=== PATIENT | female | born 1955 | race Caucasian/White ===

== ENCOUNTER 2020-12-01 07:27 | Outpatient (REF) | payer MEDICARE, OTHER, SELFPAY ==
--- NOTE | ~2020-12-01 | MM_ITS ---
EXAMINATION: MM SCREENING DIGITAL BREAST TOMOSYNTHESIS, CLINICAL INFORMATION: Screening. Asymptomatic. The lifetime risk of breast cancer based on the Tyrer-Cuzick Model is 4%. COMPARISON: Mammography: 06/29/2019 and prior exams dating back to 2009. TECHNIQUE: Digital breast tomosynthesis is performed in both the craniocaudal and mediolateral oblique views along with computer-aided detection (CAD). Synthesized 2D images are generated from the tomosynthesis. Additional exaggerated right CC view is provided. FINDINGS: The breasts are heterogeneously dense, which may obscure small masses (ACR BI-RADS breast composition Category c). Breast tissue composition borders on average fibroglandular. The left breast is unremarkable. There is no interval mass or architectural abnormality or developing density. No abnormal calcifications. The axilla and skin contours are unremarkable. The right MLO view has asymmetric density posterior lower quadrant 8 cm from nipple likely incompletely compressed glandular tissue and/or summation artifact. The exaggerated CC view shows some grouped calcifications posterior outer breast without visible correlate on MLO view. Patient will be recalled for additional imaging right breast. MM/MM tomosynthesis screening BI IMPRESSION: Right (2 findings): -Small group of calcifications on exaggerated CC. -Asymmetric density posterior lower quadrant on MLO possibly summation artifact. Left: -No mammographic evidence of malignancy. ASSESSMENT: BI-RADS 0: Incomplete - Need Additional Imaging Evaluation RECOMMENDATION: 1. Additional views of the right breast (magnification exaggerated CC, magnification MLO; 3-D ML lower). 2. Targeted ultrasound if warranted after review of the additional views. 3. Radiology department staff will contact the patient for additional imaging. This patient's information was entered into a reminder system with a target due date for their next mammogram.
== END 2020-12-01 07:28 | disposition home or self-care (01) ==
LOC: HO.MAMMO 07:27
PROVIDERS: PCP Internal Medicine; Visit Provider Internal Medicine
DX: Z12.31 Encounter for screening mammogram for malignant neoplasm of breast (principal)
CPT/HCPCS: 77063; 77067

== ENCOUNTER 2020-12-08 08:02 | Outpatient (REF) | payer MEDICARE, OTHER, SELFPAY ==
--- NOTE | ~2020-12-08 | MM_ITS ---
EXAMINATION: MM DIAGNOSTIC DIGITAL BREAST TOMOSYNTHESIS, RIGHT CLINICAL INFORMATION: Recall from screening for 2 separate findings right breast: Asymmetric density posterior lower quadrant on MLO view possibly summation artifact and some calcifications posterior outer breast on exaggerated CC view. COMPARISON: Mammography: 12/01/2020 and prior exams dating back to 04/12/2014 TECHNIQUE: Digital breast tomosynthesis is performed. 2D images are generated from the tomosynthesis. The following views are obtained: 3-D ML, magnification exaggerated CC, magnification MLO x2. FINDINGS: The breasts are heterogeneously dense, which may obscure small masses (ACR BI-RADS breast composition Category c). The additional views demonstrate no persistent asymmetric density. There is no mass or architectural abnormality in the posterior lower breast. The calcifications posterior upper outer breast are scattered and in retrospect similar to prior exams dating back to 2017 and 2013. MM/MM tomosynthesis added views R IMPRESSION: 1. Additional views show no persistent asymmetric density lower right breast. 2. Scattered calcifications posterior upper outer right breast similar to prior exams. ASSESSMENT: BI-RADS 2: Benign RECOMMENDATION: Routine annual mammography screening. This patient's information was entered into a reminder system with a target due date for their next mammogram.
== END 2020-12-08 08:03 | disposition home or self-care (01) ==
LOC: HO.MAMMO 08:02
PROVIDERS: PCP Internal Medicine; Visit Provider Internal Medicine
DX: N64.89 Other specified disorders of breast (principal); R92.1 Mammographic calcification found on diagnostic imaging of breast
CPT/HCPCS: 77061; 77065

== ENCOUNTER 2021-09-21 08:47 | Outpatient (REF) | payer MEDICARE, OTHER, SELFPAY ==
[2021-09-21 09:01] LABS: MANUAL DIFF FLAG NO
[2021-09-21 09:43] LABS: Basophils Percent Auto 0.6 % (0-2); Eosinophils Absolute Auto 0.1 X10*3/uL (0.0-0.4); Eosinophils Percent Auto 1.6 % (0-4); Hematocrit 41.5 % (37.0-47.0); Hemoglobin 13.6 g/dl (12.0-16.0); Imm Gran Abs Auto 0.01 X10*3/uL (0.00-0.03); Imm Gran Pct Auto 0.2 % (0.0-0.4); Lymphocytes Absolute Auto 1.6 X10*3/uL (1.2-4.9); Lymphocytes Percent Auto 33.5 % (20-40); Mean Corpuscular HGB Conc 32.8 g/dl (31.0-35.0); Mean Corpuscular Hemoglobin 31.1 pg (27.0-33.0); Mean Platelet Volume 9.6 fL (9.4-12.3); Monocytes Absolute Auto 0.4 X10*3/uL (0.1-1.2); Monocytes Percent Auto 9.1 % (2-11); Neutrophils Absolute Auto 2.7 x10*3/uL (2.0-8.3); Platelet Count 226 X10*3/uL (160-400); Red Blood Count 4.37 X10*6/uL (4.20-5.50); Red Cell Distribution Width 12.6 % (11.0-16.0); White Blood Count 4.9 X10*3/uL (4.8-10.8)
[2021-09-21 09:44] LABS: Appearance Urine CLEAR; Color Urine YELLOW; Glucose Urine UA NEG (NEG); Leukocyte Esterase Urine NEG (NEG); Nitrite Urine NEG (NEG); Specific Gravity - Urine 1.025 (1.005-1.025); Urine Blood NEG (NEG); Urine Ketones NEG (NEG); Urine Protein NEG (NEG-TRACE)
[2021-09-21 09:50] LABS: RBC Urine 0-2 /HPF (0); Squamous Epithelial Cell Urine 1+ /LPF; WBC Urine 0-2 /HPF (0-4)
[2021-09-21 09:51] LABS: Bacteria Urine TRACE /LPF; Mucus Urine 2+ /LPF
[2021-09-21 10:07] LABS: Alanine Aminotransferase 13 U/L (0-31); Albumin Level 4.5 g/dL (3.5-5.0); Alkaline Phosphatase 69 U/L (39-117); Anion Gap 10 (12-20); Aspartate Amino Transferase 17 U/L (5-31); Bilirubin Total 0.7 mg/dL (0.0-1.0); Blood Urea Nitrogen 17 mg/dL (9-16); Carbon Dioxide 27 mmol/L (22-29); Chloride 107 mmol/L (96-108); Cholesterol 182 mg/dL; Estimated Glomerular Filt Rate > 60; Glucose Fasting 95 mg/dL (60-99); HDL Cholesterol 58 mg/dL; LDL Cholesterol Calculated 107 mg/dl; Potassium 4.3 mmol/L (3.3-5.1); Sodium 140 mmol/L (135-145); Triglycerides 89 mg/dL
== END 2021-09-21 08:48 | disposition home or self-care (01) ==
LOC: HO.LAB 08:47
PROVIDERS: PCP Internal Medicine; Visit Provider Internal Medicine
DX: I10 Essential (primary) hypertension (principal); M54.9 Dorsalgia, unspecified; J44.9 Chronic obstructive pulmonary disease, unspecified; Z87.891 Personal history of nicotine dependence
CPT/HCPCS: 36415; 80053; 80061; 81001; 85025

== ENCOUNTER 2021-12-28 07:55 | Outpatient (REF) | payer MEDICARE, OTHER, SELFPAY ==
--- NOTE | ~2021-12-28 | MM_ITS ---
EXAMINATION: MM SCREENING DIGITAL BREAST TOMOSYNTHESIS, BILATERAL CLINICAL INFORMATION: Screening. Asymptomatic. The lifetime risk of breast cancer based on the Tyrer-Cuzick Model is 4%. COMPARISON: Mammography: 12/08/2020, 12/01/2020, 06/29/2019 TECHNIQUE: Digital breast tomosynthesis is performed in both the craniocaudal and mediolateral oblique views along with computer-aided detection (CAD). Synthesized 2D images are generated from the tomosynthesis. FINDINGS: The breasts are heterogeneously dense, which may obscure small masses (ACR BI-RADS breast composition Category c). There are no significant masses, abnormal calcifications, or other abnormalities. Breast tissue composition borders on average fibroglandular. Parenchymal pattern is similar to prior studies. No developing density. No significant changes. MM/MM tomosynthesis screening BI IMPRESSION: No mammographic evidence of malignancy. ASSESSMENT: BI-RADS 1: Negative RECOMMENDATION: Routine annual mammography screening. This patient's information was entered into a reminder system with a target due date for their next mammogram.
== END 2021-12-28 07:56 | disposition home or self-care (01) ==
LOC: HO.MAMMO 07:55
PROVIDERS: PCP Internal Medicine; Visit Provider Internal Medicine
DX: Z12.31 Encounter for screening mammogram for malignant neoplasm of breast (principal)
CPT/HCPCS: 77063; 77067

== ENCOUNTER 2022-04-16 08:56 | Outpatient (REF) | payer MEDICARE, OTHER, SELFPAY ==
[2022-04-16 09:26] LABS: Hematocrit 40.6 % (37.0-47.0); Hemoglobin 13.7 g/dl (12.0-16.0); Mean Corpuscular HGB Conc 33.7 g/dl (31.0-35.0); Mean Corpuscular Hemoglobin 31.6 pg (27.0-33.0); Mean Corpuscular Volume 93.5 fL (80.0-98.0); Mean Platelet Volume 9.3 fL (9.4-12.3); Platelet Count 249 X10*3/uL (160-400); Red Blood Count 4.34 X10*6/uL (4.20-5.50); Red Cell Distribution Width 12.1 % (11.0-16.0); White Blood Count 6.6 X10*3/uL (4.8-10.8)
[2022-04-16 09:58] LABS: Alanine Aminotransferase 14 U/L (0-31); Albumin Level 4.8 g/dL (3.5-5.0); Alkaline Phosphatase 97 U/L (39-117); Anion Gap 13 (12-20); Aspartate Amino Transferase 17 U/L (5-31); Bilirubin Total 0.5 mg/dL (0.0-1.0); Blood Urea Nitrogen 17 mg/dL (9-16); Calcium 9.7 mg/dL (8.4-10.2); Carbon Dioxide 28 mmol/L (22-29); Chloride 103 mmol/L (96-108); Estimated Glomerular Filt Rate > 60; Glucose Random 95 mg/dL (60-115); Sodium 139 mmol/L (135-145); Total Protein 7.3 g/dL (6.5-8.0)
== END 2022-04-16 08:57 | disposition home or self-care (01) ==
LOC: HO.LAB 08:56
PROVIDERS: PCP Internal Medicine; Visit Provider Internal Medicine
DX: R63.0 Anorexia (principal); K59.00 Constipation, unspecified; R19.7 Diarrhea, unspecified; R12 Heartburn
CPT/HCPCS: 36415; 80053; 85027; 99202

== ENCOUNTER 2023-03-12 13:41 | Outpatient (AMB) | payer MEDICARE, OTHER, SELFPAY ==
--- NOTE | 2023-03-12 13:51 | MHC.OFFVIS ---
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 Patient reports having locking of the middle finger in both hands for 7 years. Hx of trigger finger injection unsure of which hand. She states that her right hand is worse than the left. Hx of CTS on the right hand twice. Having ongoing numbness on the right thumb, pointer, middle and half of the ring finger. Allergies bees Allergy (Severe, Uncoded 04/16/22 08:04) Hives HPI PICKING MACHINE OPERATOR-B/L hand trigger fingers HPI Details Michaela is a 67 year old right hand dominant woman who presents with complaints of bilateral painful locking & catching of the middle fingers, R>L. She reports painful locking of her middle fingers for ~7 years now, with a Hx of steroid injections in the past but she is unsure to which finger She reports a Hx of 2X right carpal tunnel releases at an outside location. She complains of persistent numbness in the median nerve distribution She says she cares for her infant grandson every other Friday [facility] Medical History (Updated 03/12/23 @ 14:15 by Boubacar Martinez) History of high blood pressure Surgical History (Updated 03/12/23 @ 14:14 by Boubacar Martinez) Hx of carpal tunnel repair Hx of cervical spinal arthrodesis Hx of tubal ligation Family History Mother HTN (hypertension) Heart attack Father Prostate cancer Social History (Updated 03/12/23 @ 13:59 by Neftaly Camacho) Household Members: Spouse Alcohol intake: current Tobacco use type: Cigarette Substance Use Type: Marijuana Current occupational status: retired Current occupation: right hand dominant Review of Systems Const All systems reviewed & are unremarkable except as noted in HPI and below Physical Exam Vital Signs: BMI result Body Mass Index 23.5 Const General: cooperative, healthy appearing and no acute distress Orientation/consciousness: patient oriented x3 HEENT Head: Yes normocephalic and Yes atraumatic Eyes EOM: EOMs intact bilaterally Resp Effort & Inspection: normal respiratory effort and able to speak in complete sentences Cardio Jugular venous distension: no JVD Skin General skin exam: turgor normal Rashes: no rashes Neuro General: patient oriented x3 Extrem Other: Evaluation of right Upper Extremity: The patient is alert, oriented, and in no acute distress Neuro: Dense numbness in the median nerve distribution of the right hand. Significant thenar wasting and no APB muscle belly firing. Normal sensation to the small finger of the left hand Vascular: Cap refill brisk ROM: She can make a fist and extend all her digits Visible and palpable locking and catching of the bilateral middle fingers & right ring finger Tender over the a1 dwaine of the right middle finger and right ring finger Questionable sticking of the right thumb Skin: No lacerations or abrasions. General: No Ecchymosis. No Erythema or evidence of infection. Psych Appearance: grossly normal Affect: normal affect Attitude: cooperative Assessment & Plan Assessment & Plan (1) Trigger middle finger of right hand: Code(s): M65.331 - Trigger finger, right middle finger (2) Trigger middle finger of left hand: Code(s): M65.332 - Trigger finger, left middle finger (3) History of carpal tunnel surgery of right wrist: Code(s): Z98.890 - Other specified postprocedural states (4) Trigger ring finger of right hand: Code(s): M65.341 - Trigger finger, right ring finger Plan Assessment & Plan: 1. Right middle finger trigger finger 2. Right ring finger trigger finger 3. Left middle finger trigger finger I educated her about this condition I discussed operative and non-operative treatment options The patient would like to proceed with surgery, beginning with the right hand The risks and benefits of operative treatment were discussed with the patient and the patient wishes to proceed with surgery. These risks include, but are not limited to risk of damage to blood vessels, nerves, tendons, infection, recurrence, incomplete relief of preoperative symptoms, persistent pain, possible need for further surgery and the risks associated with regional blocks and anesthesia. The plan is to take the patient to the operating room sometime in the next few weeks for the following procedures: 1. Right middle trigger finger release, under local 1. Right ring trigger finger release, under local All of the preoperative paperwork including the consent was filled out today. All the patient's questions were answered. The patient understands that they will be contacted by our copy clerk soon to schedule this procedure She denies Diabetes, blood thinners, asthma, heart, lung, kidney issues We can discuss treatment for her left hand at a later date 4. Right carpal tunnel syndrome, S/P 2x release DOS: ~2009 With dense numbness in the median nerve distribution and thenar wasting Scribed for Laura Arroyo MD by Boubacar Martinez, medical practice administrator, on 03/12/23 at 2:15 PM, EST. Coding Level of Care Code New Pt Level 4 (38013) Diagnoses Trigger middle finger of right hand M65.331 Trigger middle finger of left hand M65.332 History of carpal tunnel surgery of right wrist Z98.890 Trigger ring finger of right hand M65.341
[2023-03-12 13:59] VITALS: BMI 23.5
== END 2023-03-12 14:35 | disposition home or self-care (01) ==
PROVIDERS: PCP Internal Medicine; Visit Provider Orthopaedic Surgery
DX: M65.331 Trigger finger, right middle finger (principal); M65.332 Trigger finger, left middle finger; M65.341 Trigger finger, right ring finger; Z98.890 Other specified postprocedural states
CPT/HCPCS: 99204

== ENCOUNTER → 2023-03-12 13:41 | Outpatient (BNVA) | payer MEDICARE, OTHER, SELFPAY | PROVIDERS: PCP Internal Medicine; Visit Provider Orthopaedic Surgery | DX: M65.332 Trigger finger, left middle finger (principal); M65.341 Trigger finger, right ring finger; Z98.890 Other specified postprocedural states | CPT/HCPCS: 99202 ==

== ENCOUNTER 2023-04-16 09:03 | Outpatient (REF) | payer MEDICARE, OTHER, SELFPAY | END 2023-04-16 09:04 | disposition home or self-care (01) | LOC: HO.MAMMO 09:03 | PROVIDERS: PCP Internal Medicine; Visit Provider Internal Medicine | DX: Z12.31 Encounter for screening mammogram for malignant neoplasm of breast (principal) | CPT/HCPCS: 77063; 77067 ==

== ENCOUNTER → 2023-04-16 09:15 | Outpatient (BNV) | payer MEDICARE, OTHER, SELFPAY | PROVIDERS: PCP Internal Medicine; Visit Provider Radiology Diagnostic Radiology | DX: Z12.31 Encounter for screening mammogram for malignant neoplasm of breast (principal) | CPT/HCPCS: 77063; 77067 ==

== ENCOUNTER 2023-06-16 13:09 | Outpatient (AMB) | payer MEDICARE, OTHER, SELFPAY ==
--- NOTE | 2023-06-16 13:31 | A.OFFVIS_ITS ---
Intake Vital Signs 06/16/23 13:32 Height 5 ft 5 in Weight 136 lb 10.986 oz BMI 22.7 BP 134/74 Blood Pressure Location Lt brachial Position Sitting Pulse 66 Intake Visit Reasons: EGD discussion Intake Note: Michaela presents in the office today as a follow up. CC: She has not been here in a year. She states that she started taking Benefiber Prebiotic and a Probiotic and she is unsure that it is working for her or not. Allergies bees Allergy (Severe, Uncoded 06/16/23 13:33) Hives HPI HPI Comments History of Present Illness Details CC: abdominal pain and changes in BM 04/16/22: This is a 66 year old female who is here to establish care. Previously Dr Rice patient and shifting care as was not able to get an appt with his office. Has had symptoms for 7 years. Describes these symptoms as heartburn, and periumbilcal abdominal pain which is associated with constipation frequent burping which frustrates her. More recently has had loss of appetite, without loss of weight. When tries to eat becomes nauseous. In terms of bowel habits, alternating between constipation and diarrhea. Abdominal pain which is present almost everyday gets worse or is triggered by the BMs. Describes constipation as infrequent BMs (3-4/week). The BMs are not hard and doesnt have to strain. No blood in stools. Takes NSAIDs frequently, was using ibuprofen after dental work last week. GB still in. Smoker - 1 cig/day (finishes a pack in a month). Diet: loves onions, garlic which inevitably cause bloating and heartburn but finds it hard to avoid it completely. Also takes salads with cruciferous vegetables 4 times a week. Last colonoscopy around [address] Rice. Records pending. Was told to get it repeated in 10 years. Has never had an EGD. 06/16/23: Was lost to follow up. Had a visit over a year ago and that time main concern was abd pain postprandially with urge to defecate. Was booked for a follow up visit to review sx after med and dietary changes which she canceled as she was feeling well. Today, main CC is burning abd pain which seems to go across her abdomen from left to right. Occurs after some certain foods (which she does try to avoid) but once triggered lasts for many hours. Does not think tums helps it. Unable to recall if trial of PPI last year was helpful. With this no changes in appetite, N,V, regurgitation, changes in bowel habits. Has been INTENTIONALLY trying to lose weight but no unintentional weight loss. [facility] Medical History History of high blood pressure Surgical History (Updated 06/16/23 @ 13:33 by EL Rossi) Hx of colonoscopy Hx of carpal tunnel repair Hx of cervical spinal arthrodesis Hx of tubal ligation Family History Mother HTN (hypertension) Heart attack Father Prostate cancer Social History Household Members: Spouse Alcohol intake: current Tobacco use type: Cigarette Substance Use Type: Marijuana Current occupational status: retired Current occupation: right hand dominant Review of Systems Const All systems reviewed & are unremarkable except as noted in HPI and below Physical Exam Vital Signs: Last Vital Signs Pulse 66 06/16/23 13:32 BP 134/74 06/16/23 13:32 BMI result Body Mass Index 22.7 Gen appear: NAD HEENT: nonicteric, no cervical lymphadenopathy Chest: CTA CVS: Regular S1/S2 Abd: soft, nontender, nondistended, bowel sounds + Ext: no peripheral edema Neuro: A/Ox3, noted to move all extremities spontaneously Psych: interacting appropriately Assessment & Plan Assessment & Plan (1) Irritable bowel disease: Code(s): K58.9 - Irritable bowel syndrome without diarrhea (2) Gastro-esophageal reflux: Code(s): K21.9 - Gastro-esophageal reflux disease without esophagitis Plan: Ddx for burning postprandial abd pain include PUD, esophagitis, gastritis, symptomatic cholelithiasis. Pt already aware to avoid trigger foods, smoking and NSAIDs. Plan: - EGD to be set up on non-urgent basis - Take pantoprazole 20 mg once daily in AM and HOLD x2 weeks before EGD - If no evidence of esophagitis endoscopically or histologically, will get an US Abd - Hx of HP polyps, not due for colo till 2025. Follow up after EGD Medications: Changed From pantoprazole 20 mg PO DAILY 2 weeks 14 tabs 0RF To pantoprazole 20 mg PO DAILY 90 days 90 tabs 0RF Coding Level of Care Code Est Pt Level 4 (04201) Diagnoses Irritable bowel disease K58.9 Gastro-esophageal reflux K21.9
[2023-06-16 13:32] VITALS: BP 134/74; PULSE 66; BMI 22.7
== END 2023-06-16 14:07 | disposition home or self-care (01) ==
PROVIDERS: PCP Internal Medicine; Visit Provider Internal Medicine
DX: K58.9 Irritable bowel syndrome, unspecified (principal); K21.9 Gastro-esophageal reflux disease without esophagitis
CPT/HCPCS: 99214

== ENCOUNTER → 2023-06-16 13:09 | Outpatient (BNVA) | payer MEDICARE, OTHER, SELFPAY | PROVIDERS: PCP Internal Medicine; Visit Provider Internal Medicine | DX: K58.9 Irritable bowel syndrome, unspecified (principal); K21.9 Gastro-esophageal reflux disease without esophagitis | CPT/HCPCS: 99212 ==

== ENCOUNTER 2023-07-14 06:59 | Outpatient (REF) | payer MEDICARE, OTHER, SELFPAY ==
[2023-07-14 07:12] LABS: MANUAL DIFF FLAG NO
[2023-07-14 07:46] LABS: Basophils Percent Auto 0.7 % (0-2); Eosinophils Absolute Auto 0.1 X10*3/uL (0.0-0.4); Eosinophils Percent Auto 2.4 % (0-4); Hemoglobin 13.6 g/dl (12.0-16.0); Imm Gran Abs Auto 0.01 X10*3/uL (0.00-0.03); Imm Gran Pct Auto 0.2 % (0.0-0.4); Lymphocytes Absolute Auto 1.8 X10*3/uL (1.2-4.9); Mean Corpuscular HGB Conc 33.2 g/dl (31.0-35.0); Mean Corpuscular Hemoglobin 30.7 pg (27.0-33.0); Mean Corpuscular Volume 92.6 fL (80.0-98.0); Mean Platelet Volume 9.7 fL (9.4-12.3); Monocytes Absolute Auto 0.5 X10*3/uL (0.1-1.2); Neutrophils Absolute Auto 3.3 x10*3/uL (2.0-8.3); Neutrophils Percent Auto 56.7 % (45-73); Platelet Count 250 X10*3/uL (160-400); Red Blood Count 4.43 X10*6/uL (4.20-5.50); Red Cell Distribution Width 11.9 % (11.0-16.0); White Blood Count 5.8 X10*3/uL (4.8-10.8)
[2023-07-14 08:08] LABS: Alanine Aminotransferase 13 U/L (0-31); Albumin Level 4.3 g/dL (3.5-5.0); Alkaline Phosphatase 77 U/L (39-117); Anion Gap 10 (12-20); Aspartate Amino Transferase 15 U/L (5-31); Bilirubin Total 0.5 mg/dL (0.0-1.0); Blood Urea Nitrogen 16 mg/dL (9-16); Calcium 9.5 mg/dL (8.4-10.2); Carbon Dioxide 27 mmol/L (22-29); Chloride 106 mmol/L (96-108); Cholesterol 159 mg/dL (<200); Estimated Glomerular Filt Rate > 60; Glucose Fasting 100 mg/dL (60-99); HDL Cholesterol 56 mg/dL (>40); LDL Cholesterol Calculated 87 mg/dL (<100); Potassium 4.1 mmol/L (3.3-5.1); Sodium 139 mmol/L (135-145); Total Protein 6.7 g/dL (6.5-8.0); Triglycerides 80 mg/dL (<150)
[2023-07-18 02:04] LABS: VITAMIN D (1,25 OH) D3 46 pg/mL; Vit D (1,25-Dihydroxy) Total 46 pg/mL (18-72); Vitamin D (1,25 OH) D2 <8 pg/mL
== END 2023-07-14 07:00 | disposition home or self-care (01) ==
LOC: HO.LAB 06:59
PROVIDERS: PCP Internal Medicine; Visit Provider Internal Medicine
DX: I10 Essential (primary) hypertension (principal); J44.9 Chronic obstructive pulmonary disease, unspecified; R22.1 Localized swelling, mass and lump, neck; K21.9 Gastro-esophageal reflux disease without esophagitis; K58.9 Irritable bowel syndrome, unspecified
CPT/HCPCS: 36415; 80053; 80061; 82652; 85025

== ENCOUNTER 2023-07-15 08:09 | Outpatient (AMB) | payer MEDICARE, OTHER, SELFPAY ==
[2023-07-15 08:14] VITALS: BP 126/60; PULSE 64; BMI 22.1
--- NOTE | 2023-07-15 08:14 | A.OFFVIS_ITS ---
Intake Vital Signs 07/15/23 08:14 Height 5 ft 5 in Weight 133 lb BMI 22.1 BP 126/60 Blood Pressure Location Rt brachial Position Sitting Pulse 64 Intake Visit Reasons: Neck Nodule Intake Note: Patient referred by Dr. Dexter for nodule on Rt post neck. Patient first noticed last week. Denies pain, oozing, bleeding. 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 This was picked up by her medical doctor recently. She herself the patient has not felt this process. She has not had such lesions elsewhere. Patient denies any fever, chills, night sweats, weight loss. Chart was reviewed patient evaluated [facility] Medical History History of high blood pressure Surgical History Hx of colonoscopy Hx of carpal tunnel repair Hx of cervical spinal arthrodesis Hx of tubal ligation Family History Mother HTN (hypertension) Heart attack Father Prostate cancer Social History (Updated 07/15/23 @ 08:23 by EL Krishna) Household Members: Spouse Alcohol intake: current Alcohol intake frequency: holidays/special occasions only Alcohol type: wine Tobacco use type: Cigarette Substance Use Type: Marijuana Current occupational status: retired Current occupation: right hand dominant Physical Exam Vital Signs: Last Vital Signs Pulse 64 07/15/23 08:14 BP 126/60 07/15/23 08:14 BMI result Body Mass Index 22.1 HEENT Other: No cervical, periclavicular, or axillary lymph nodes appreciated bilaterally. The area in question of the posterior neck cyst was not able to be identified by either the patient or myself. Assessment & Plan Assessment & Plan (1) Nonpalpable mass of neck: Code(s): R22.1 - Localized swelling, mass and lump, neck Plan Current plan is to see the patient in few months time to see if this process appears or symptomatic. During this interim, should the patient find this mass or become symptomatic, she should call the office for immediate follow-up. All questions were answered. Coding Level of Care Code New Pt Level 3 (32019) Diagnoses Nonpalpable mass of neck R22.1
== END 2023-07-15 08:52 | disposition home or self-care (01) ==
PROVIDERS: PCP Internal Medicine; Visit Provider Surgery
DX: R22.1 Localized swelling, mass and lump, neck (principal)
CPT/HCPCS: 99203

== ENCOUNTER → 2023-07-15 08:09 | Outpatient (BNVA) | payer MEDICARE, OTHER, SELFPAY | PROVIDERS: PCP Internal Medicine; Visit Provider Surgery | DX: R22.1 Localized swelling, mass and lump, neck (principal) | CPT/HCPCS: 99202 ==

== ENCOUNTER 2023-10-09 07:20 | Day surgery (SDC) | payer MEDICARE, OTHER, SELFPAY ==
[2023-10-06 16:09] VITALS: BMI 22.7
--- NOTE | 2023-10-08 09:00 | HO.ANESPROP2 ---
Documented by User: Kaylyn Orr NP 10/08/23 09:00 HPI - Anesthesia Eval Consult details Narrative: 68yo F for Upper Endoscopy PMFSH Active Problems Active Problems: All Active Problems (Updated 03/12/23 @ 14:15 by Boubacar Martinez) Nonpalpable mass of neck (Acute) Trigger ring finger of right hand (Acute) History of carpal tunnel surgery of right wrist (Acute) Trigger middle finger of left hand (Acute) Trigger middle finger of right hand (Acute) Irritable bowel disease (Acute) Past Medical History Medical History History of high blood pressure Family History Family History Mother HTN (hypertension) Heart attack Father Prostate cancer Surgical History Surgical History Hx of colonoscopy Hx of carpal tunnel repair Hx of cervical spinal arthrodesis Hx of tubal ligation Social History Social History Household Members: Spouse Alcohol intake: current Alcohol intake frequency: 0-2 drinks per day Alcohol type: wine Patient Tobacco Use Status: Current someday Tobacco user Tobacco use type: Cigarette Substance Use Type: Marijuana Current occupational status: retired Current occupation: right hand dominant Meds Allergies Allergy/AdvReac Type Severity Reaction Status Date / Time bees Allergy Severe Hives Uncoded 07/15/23 08:21 Home Medications Medication Instructions Recorded Confirmed Last Taken Type gabapentin 300 mg capsule mg PO 04/16/22 Unknown History lisinopril 5 mg tablet 5 mg PO DAILY 04/16/22 Unknown History metoprolol succinate 25 mg 25 mg PO DAILY 04/16/22 Unknown History tablet,extended release 24 hr sertraline 50 mg tablet 150 mg PO DAILY 04/16/22 Unknown History vitamin B complex (B 1 tab PO DAILY 06/16/23 Unknown History Complex-Vitamin B12 tablet) wheat dextrin 3 gram/3.8 gram oral 1.5 g PO BID 06/16/23 Unknown History powder (Benefiber Sugar Free (dextrin)) Exam Height,Weight and Vital Signs: Height 5 ft 5 in Weight 62 kg Assessment and Plan Assessment Anesthesia Assessment: Chart Reviewed Documented by User: Gabrielle Wills MD 10/09/23 09:20 PMFSH Active Problems Active Problems: All Active Problems (Updated 10/09/23 @ 08:03 by aGbrielle Wills MD) Nonpalpable mass of neck (Acute) Trigger ring finger of right hand (Acute) History of carpal tunnel surgery of right wrist (Acute) Trigger middle finger of left hand (Acute) Trigger middle finger of right hand (Acute) Irritable bowel disease (Acute) Smoker Marijuana Anxiety HTN Neuropathy Past Medical History Medical History History of high blood pressure Family History Family History Mother HTN (hypertension) Heart attack Father Prostate cancer Family history of problems with anesthesia: No Surgical History Surgical History Hx of colonoscopy Hx of carpal tunnel repair Hx of cervical spinal arthrodesis Hx of tubal ligation History of Problems with Anesthesia: No Social History Social History Household Members: Spouse Alcohol intake: current Alcohol intake frequency: 0-2 drinks per day Alcohol type: wine Patient Tobacco Use Status: Current someday Tobacco user Tobacco use type: Cigarette Substance Use Type: Marijuana Current occupational status: retired Current occupation: right hand dominant Meds Allergies Allergy/AdvReac Type Severity Reaction Status Date / Time bees Allergy Severe Hives Uncoded 07/15/23 08:21 Home Medications Medication Instructions Recorded Confirmed Last Taken Type gabapentin 300 mg capsule mg PO 04/16/22 Unknown History lisinopril 5 mg tablet 5 mg PO DAILY 04/16/22 Unknown History metoprolol succinate 25 mg 25 mg PO DAILY 04/16/22 Unknown History tablet,extended release 24 hr sertraline 50 mg tablet 150 mg PO DAILY 04/16/22 Unknown History vitamin B complex (B 1 tab PO DAILY 06/16/23 Unknown History Complex-Vitamin B12 tablet) wheat dextrin 3 gram/3.8 gram oral 1.5 g PO BID 06/16/23 Unknown History powder (Benefiber Sugar Free (dextrin)) Exam Height,Weight and Vital Signs: Height 5 ft 5 in Weight 62 kg Vital Signs Temp Pulse Resp BP Pulse Ox O2 Del Method 98.1 F 61 18 115/49 L 95 Room Air 10/09/23 08:22 10/09/23 08:22 10/09/23 08:22 10/09/23 08:22 10/09/23 08:22 10/09/23 08:22 Airway Mallampati Class: II TM Dist: >3cm Neck ROM: Full Loose/Missing/Broken Teeth: No (Denies broken, loose, missing teeth) Heart: RRR Lungs: CTAB Assessment and Plan Assessment Anesthesia Assessment: Anesthesia Plan Discussed and Chart Reviewed Final Anesthetic Review Family History of Problems with Anesthesia: No History of Problems with Anesthesia: No NPO: Yes ASA Class: II Final Preanesthetic Review: No Changes in Pt Med Stat, Meds/Allgs Chart Reviewed, Consent Obtained/Reviewed and Anes Risks/Benef Reviewed Patient Risk: Low Procedure Risk: Low Assessment/Block/Sedation in SS: Assess/Block/Sedation-SS Anesthetic Plan Anesthetic Plan: TIVA Disposition: Standard PACU
[2023-10-09 08:22] VITALS: BP 115/49; PULSE 61; RESP 18; TEMP 36.7; O2SAT 95
--- NOTE | 2023-10-09 08:51 | MHC.SHP ---
Pre-Procedural Eval Section A - 24 Hr Update-Section A only Date of Service: 10/09/23 Section B - Complete if H&P > 30 days Chief Complaint: Gastro-esophageal reflux disease without esophagit Details of Present Illness: PMH History of high blood pressure Surgical History Hx of colonoscopy Hx of carpal tunnel repair Hx of cervical spinal arthrodesis Hx of tubal ligation Present Medications: see Short Stay Collaborative assessment Allergies: Allergies Allergy/AdvReac Type Severity Reaction Status Date / Time bees Allergy Severe Hives Uncoded 07/15/23 08:21 Review of Systems Review of Systems Comment: 10 point ROS negative Exam Exam Comment: Gen appear: No acute distress HEENT: no icterus Chest: No overt resp distress Abd: soft, nontender, nondistended Psych: Stable affect, answering questions appropriately Neuro: A/Ox3 noted to move all extremities spontaneously Ext: no peripheral edema Plan Diagnosis/Plan: Unchanged I have reviewed the history and physical and performed a pertinent physical examination on my patient. No changes have occurred unless specified. Time Spent With Patient Time: Total time managing care of this patient today ____ minutes.
--- NOTE | 2023-10-09 08:52 | P.OP_ITS ---
Operative Note Operative Note Date of Service: 10/09/23 Narrative: Procedure: Esophagogastroduodenoscopy Endoscopist: Danielle John MD Indication: GERD Anesthesia Provider: Dr Gabrielle Wills Anesthesia Type: MAC EGD Procedure:?? The procedure, indications, preparation and potential complications were reviewed with the patient, who indicated understanding and gave written informed consent to proceed. A physical exam was performed. The endoscope was introduced through the mouth, and advanced to the third part of duodenum. The mucosa was carefully examined on slow withdrawal of the endoscope. The patient tolerated the procedure well. There were no immediate complications.? ? EGD Findings:? * Esophagus:? Normal mucosa noted in the entire esophagus. The Z line was at 38 cm. Middle and lower esophagus forceps biopsies were obtained to rule out eosinophilic esophagitis. * Stomach:? Normal mucosa was noted in the stomach. A few scattered diminutive polyps were seen in the fundus and body of the stomach. Random cold forceps gastric biopsies were taken to rule out H Pylori infection. * Duodenum:? Normal mucosa was noted in the whole of the examined duodenum. Cold forceps biopsies were taken from duodenal bulb and second portion of the duodenum to rule out celiac sprue ? EGD Impressions:? * Normal esophagus (biopsy) * Normal stomach (biopsy) * Fundic gland polyps * Normal duodenum (biopsy) ?? Recommendations:?? * Follow biopsy results. Our office will call or send a letter with results within 7-10 days. * No evidence of reflux such as esophagitis noted on endoscopic exam today * If H pylori +, patient will be prescribed eradication therapy followed by test of cure. * Avoid NSAIDs and smoking Above has been reviewed with the patient.
[2023-10-09 09:13] VITALS: BP 95/42; PULSE 59; RESP 18; TEMP 37; O2SAT 94
[2023-10-09 09:28] VITALS: BP 112/55; PULSE 69; RESP 18; TEMP 37.2; O2SAT 98
== END 2023-10-09 10:15 | disposition home or self-care (01) ==
PROVIDERS: PCP Internal Medicine; Visit Provider Internal Medicine
PROC: 0DJ08ZZ Inspection of Upper Intestinal Tract, Via Natural or Artificial Opening Endoscopic (ICD-10-PCS; CPT 43235; principal; 2023-10-09 09:00)
DX: K31.7 Polyp of stomach and duodenum (principal); K21.9 Gastro-esophageal reflux disease without esophagitis; F17.210 Nicotine dependence, cigarettes, uncomplicated
CPT/HCPCS: 43239; 88305; 88313; 88342; J2704

== ENCOUNTER → 2023-10-09 07:20 | Outpatient (BNV) | payer MEDICARE, OTHER, SELFPAY | PROVIDERS: PCP Internal Medicine; Visit Provider Internal Medicine | DX: K21.9 Gastro-esophageal reflux disease without esophagitis (principal); K31.7 Polyp of stomach and duodenum | CPT/HCPCS: 43239 ==

== ENCOUNTER 2023-10-22 11:34 | Outpatient (AMB) | payer MEDICARE, OTHER, SELFPAY ==
[2023-10-22 11:43] VITALS: BP 113/58; PULSE 65; BMI 22.3
--- NOTE | 2023-10-22 11:43 | A.OFFVIS_ITS ---
Intake Vital Signs 10/22/23 11:43 Height 5 ft 5 in Weight 134 lb BMI 22.3 BP 113/58 L Blood Pressure Location Rt brachial Position Sitting Pulse 65 Pulse Source Monitor Intake Visit Reasons: s/p egd Intake Note: Patient states shes having irregular bowel movements. She gets nauseas, dizzy spells, upset stomach every time she passes a irregular movement every couple of weeks. Field Cane Scaler Helper Required: No Accompanied by: Self / Same As Patient Allergies bees Allergy (Severe, Uncoded 07/15/23 08:21) Hives HPI HPI Comments History of Present Illness Details CC: abdominal pain and changes in BM 04/16/22: This is a 66 year old female who is here to establish care. Previously Dr Rice patient and shifting care as was not able to get an appt with his office. Has had symptoms for 7 years. Describes these symptoms as heartburn, and periumbilcal abdominal pain which is associated with constipation frequent burping which frustrates her. More recently has had loss of appetite, without loss of weight. When tries to eat becomes nauseous. In terms of bowel habits, alternating between constipation and diarrhea. Abdominal pain which is present almost everyday gets worse or is triggered by the BMs. Describes constipation as infrequent BMs (3-4/week). The BMs are not hard and doesnt have to strain. No blood in stools. Takes NSAIDs frequently, was using ibuprofen after dental work last week. GB still in. Smoker - 1 cig/day (finishes a pack in a month). Diet: loves onions, garlic which inevitably cause bloating and heartburn but finds it hard to avoid it completely. Also takes salads with cruciferous vegetables 4 times a week. Last colonoscopy around [address] Rice. Records pending. Was told to get it repeated in 10 years. Has never had an EGD. 06/16/23: Was lost to follow up. Had a visit over a year ago and that time main concern was abd pain postprandially with urge to defecate. Was booked for a follow up visit to review sx after med and dietary changes which she canceled as she was feeling well. Today, main CC is burning abd pain which seems to go across her abdomen from left to right. Occurs after some certain foods (which she does try to avoid) but once triggered lasts for many hours. Does not think tums helps it. Unable to recall if trial of PPI last year was helpful. With this no changes in appetite, N,V, regurgitation, changes in bowel habits. Has been INTENTIONALLY trying to lose weight but no unintentional weight loss. 10/09/2023: * Normal esophagus (biopsy) * Normal stomach (biopsy) * Fundic gland polyps * Normal duodenum (biopsy) A. Duodenum, biopsy: Chronic inactive duodenitis. B. Stomach, random, biopsy: Antral-type and oxyntic mucosa with mild chronic inactive inflammation and regenerative changes; no Helicobacter organisms seen. C. Esophagus, lower, biopsy: Squamous epithelium within normal limits; no inflammation seen. D. Esophagus, middle, biopsy: Squamous epithelium within normal limits; no inflammation seen. 10/22/23: Here for post procedure follow up. Reports persistent abd pain with cramping lorna after passing BM. BM fluctuate between formed and watery. EGD results reviewed which are reassuring. FORMERLY [facility], [facility] Medical History History of high blood pressure Surgical History Hx of colonoscopy Hx of carpal tunnel repair Hx of cervical spinal arthrodesis Hx of tubal ligation Family History Mother HTN (hypertension) Heart attack Father Prostate cancer Social History Household Members: Spouse Alcohol intake: current Alcohol intake frequency: 0-2 drinks per day Alcohol type: wine Patient Tobacco Use Status: Current someday Tobacco user Tobacco use type: Cigarette Substance Use Type: Marijuana Current occupational status: retired Current occupation: right hand dominant Review of Systems Const All systems reviewed & are unremarkable except as noted in HPI and below Physical Exam Vital Signs: Last Vital Signs Pulse 65 10/22/23 11:43 BP 113/58 L 10/22/23 11:43 BMI result Body Mass Index 22.3 Const General: cooperative, healthy appearing, comfortable and no acute distress Orientation/consciousness: patient oriented x3 Resp Effort & Inspection: normal respiratory effort GI Palpation (GI): Soft to palpation and No hepatosplenomegaly present Neuro General: patient oriented x3 and gait normal Extrem General: Yes full ROM Psych Appearance: well kempt Assessment & Plan Assessment & Plan (1) Irritable bowel disease: Code(s): K58.9 - Irritable bowel syndrome without diarrhea Plan Reviewed that overall assessment consistent with irritable bowel syndrome. Appears to have mixed type, as she fluctuates between diarrhea and constipation. Again, reiterated importance of taking daily fiber. Patient already has the FODMAP diet handout, and has noticed response when she adheres to the low FODMAP diet. In addition, for the abdominal pain, does not appear to have any intraluminal abnormality to account for this. Will check ultrasound abdomen rule out symptomatic cholelithiasis. In addition, will also rule out thyrotoxicosis to account for intermittent diarrhea. Follow-up in 6 months, unless has actionable finding on above testing. Orders: Orders US abdomen complete 10/22/23 R10.9 - Unspecified abdominal pain TSH reflex Free T4 10/22/23 R10.9 - Unspecified abdominal pain Coding Level of Care Code Est Pt Level 4 (80796) Diagnoses Irritable bowel disease K58.9
== END 2023-10-22 12:08 | disposition home or self-care (01) ==
PROVIDERS: PCP Internal Medicine; Visit Provider Internal Medicine
DX: K58.9 Irritable bowel syndrome, unspecified (principal)
CPT/HCPCS: 99214

== ENCOUNTER → 2023-10-22 11:34 | Outpatient (BNVA) | payer MEDICARE, OTHER, SELFPAY | PROVIDERS: PCP Internal Medicine; Visit Provider Internal Medicine | DX: K58.9 Irritable bowel syndrome, unspecified (principal) | CPT/HCPCS: 99212 ==

== ENCOUNTER 2023-11-14 08:25 | Outpatient (REF) | payer MEDICARE, OTHER, SELFPAY ==
--- NOTE | ~2023-11-14 | US_ITS ---
EXAMINATION: US ABDOMEN COMPLETE CLINICAL INFORMATION: Unspecified abdominal pain. COMPARISON: None available. TECHNIQUE: Real-time imaging of the abdominal viscera. Limited visualization due to bowel gas. FINDINGS: PANCREAS: Limited visualization of pancreatic tail and head. Imaged portion of pancreatic body is unremarkable. ABDOMINAL AORTA: Atherosclerosis in the [id number] abdominal aorta. INFERIOR VENA CAVA: Visualized portions are normal. LIVER: Hepatomegaly, 17.5 cm. Increased hepatic parenchymal heterogeneity and echogenicity could be associated with hepatocellular disease/hepatic steatosis and substantially limits visualization. Correlation with liver function tests and clinical exam recommended to determine further management. GALLBLADDER: No gallbladder wall thickening. Multiple gallstones. COMMON BILE DUCT: Normal in caliber measuring 0.2 cm in diameter. RIGHT KIDNEY: No hydronephrosis. No renal calculi. Limited visualization. The kidney measures 11.0 cm in maximum dimension. LEFT KIDNEY: No hydronephrosis. No renal calculi. Limited visualization. The kidney measures 10.2 cm in maximum dimension. SPLEEN: Normal. The spleen measures 8.4 cm in maximum dimension. FREE FLUID: None. US/US abdomen complete IMPRESSION: 1. Hepatomegaly, 17.5 cm. Increased hepatic parenchymal heterogeneity and echogenicity could be associated with hepatocellular disease/hepatic steatosis and substantially limits visualization. Correlation with liver function tests and clinical exam recommended to determine further management. 2. Cholelithiasis. 3. Atherosclerosis in the [id number] abdominal aorta.
== END 2023-11-14 08:26 | disposition home or self-care (01) ==
LOC: HO.US 08:25
PROVIDERS: PCP Internal Medicine; Visit Provider Internal Medicine
DX: R10.9 Unspecified abdominal pain (principal)
CPT/HCPCS: 76700

== ENCOUNTER 2023-11-19 14:04 | Outpatient (REF) | payer MEDICARE, OTHER, SELFPAY ==
[2023-11-19 15:37] LABS: Alanine Aminotransferase 13 U/L (0-31); Albumin Level 4.6 g/dL (3.5-5.0); Alkaline Phosphatase 97 U/L (39-117); Anion Gap 13 (12-20); Aspartate Amino Transferase 16 U/L (5-31); Bilirubin Total 0.3 mg/dL (0.0-1.0); Blood Urea Nitrogen 13 mg/dL (9-16); Calcium 9.8 mg/dL (8.4-10.2); Carbon Dioxide 26 mmol/L (22-29); Chloride 106 mmol/L (96-108); Estimated Glomerular Filt Rate > 60; Glucose Random 80 mg/dL (60-115); Iron 92 mcg/dL (30-160); Percent Iron Saturation 31 % (15-50); Potassium 4.2 mmol/L (3.3-5.1); Sodium 141 mmol/L (135-145); Total Iron Binding Capacity 298 mcg/dL (228-428); Total Protein 7.2 g/dL (6.5-8.0); Unsaturated Iron Binding 206 ug/dL
[2023-11-19 15:51] LABS: Ferritin 115 ng/mL (10-250); TSH reflex Free T4 0.46 uIU/mL (0.32-4.0)
[2023-11-20 08:09] LABS: HBc Num1 0.04 S/CO (0.00-0.79); HBsAGNum1 0.44 S/CO (0.00-0.99); Hepatitis B Core Antibody Nonreactive (Nonreactive); Hepatitis B Surface Antigen Negative (Negative); ~HepC Num1 0.09 S/CO (0.00-0.79); ~Hepatitis B Surface Antibody NONREACTIVE (Nonreactive); ~Hepatitis C Antibody Nonreactive (Nonreactive)
[2023-11-20 08:13] LABS: Hepatitis A Antibody IgG REACTIVE (Nonreactive); ~Hepatitis A Antibody IgG 1.24 S/CO (0.00-0.99)
[2023-11-21 13:33] LABS: Transglutaminase IgA <1.0 U/mL
[2023-11-21 16:08] LABS: Immunoglobulin A 125 mg/dL (70-320); Immunoglobulin G 890 mg/dL (600-1540)
[2023-11-21 16:19] LABS: Alpha 1 Anti-trypsin 156 mg/dL (83-199); Ceruloplasmin 28 mg/dL (18-53)
[2023-11-24 14:23] LABS: Alk.Phos Iso. Macrohepatic 0 % (<=0); Alk.Phos Isoenzymes Bone 42 % (28-66); Alk.Phos Isoenzymes Intest 29 % (1-24); Alk.Phos Isoenzymes Liver 29 % (25-69); Alk.Phos Isoenzymes Placental 0 % (<=0); Alk.Phos Isoenzymes Total 78 U/L (37-153)
[2023-11-25 13:08] LABS: Liver Kidney Microsomal Ab <=20.0 U (<=20.0)
[2023-11-26 06:43] LABS: Smooth Muscle Antibody <20 U (<20)
[2023-11-26 13:23] LABS: Mitochondrial Antibodies NEGATIVE (NEGATIVE)
[2023-11-27 08:28] LABS: Phosphatidylethanol 16:0-18:2 52 (H)
== END 2023-11-19 14:05 | disposition home or self-care (01) ==
LOC: HO.LAB 14:04
PROVIDERS: PCP Internal Medicine; Visit Provider Internal Medicine
DX: R10.9 Unspecified abdominal pain (principal); R16.0 Hepatomegaly, not elsewhere classified
CPT/HCPCS: 36415; 80053; 80321; 82103; 82390; 82728; 82784; 83540; 84080; 84443; 86015; 86364; 86376; 86381; 86704; 86706; 86708; 86803; 87340

== ENCOUNTER 2024-04-21 08:58 | Outpatient (AMB) | payer MEDICARE, OTHER, SELFPAY ==
--- NOTE | 2024-04-21 09:03 | A.OFFVIS_ITS ---
Vital Signs 04/21/24 09:05 Height 5 ft 5 in Weight 130 lb 1.164 oz BMI 21.6 BP 119/64 Blood Pressure Location Lt brachial Position Sitting Pulse 64 Intake Visit Reasons: 6 month follow up Gerd, abd pain Intake Note: Michaela presents in the office as a 6 month follow up for GERD and Abdominal pains. CC: She states that she is still the same as before. She tries to watch what she eats. Global Category Manager Required: No Allergies bees Allergy (Severe, Uncoded 04/21/24 09:06) Hives HPI Comments Details: CC: abdominal pain and changes in BM 04/16/22: This is a 66 year old female who is here to establish care. Previously Dr Rice patient and shifting care as was not able to get an appt with his office. Has had symptoms for 7 years. Describes these symptoms as heartburn, and periumbilcal abdominal pain which is associated with constipation frequent burping which frustrates her. More recently has had loss of appetite, without loss of weight. When tries to eat becomes nauseous. In terms of bowel habits, alternating between constipation and diarrhea. Abdominal pain which is present almost everyday gets worse or is triggered by the BMs. Describes constipation as infrequent BMs (3-4/week). The BMs are not hard and doesnt have to strain. No blood in stools. Takes NSAIDs frequently, was using ibuprofen after dental work last week. GB still in. Smoker - 1 cig/day (finishes a pack in a month). Diet: loves onions, garlic which inevitably cause bloating and heartburn but finds it hard to avoid it completely. Also takes salads with cruciferous vegetables 4 times a week. Last colonoscopy around [address] Rice. Records pending. Was told to get it repeated in 10 years. Has never had an EGD. 06/16/23: Was lost to follow up. Had a visit over a year ago and that time main concern was abd pain postprandially with urge to defecate. Was booked for a follow up visit to review sx after med and dietary changes which she canceled as she was feeling well. Today, main CC is burning abd pain which seems to go across her abdomen from left to right. Occurs after some certain foods (which she does try to avoid) but once triggered lasts for many hours. Does not think tums helps it. Unable to recall if trial of PPI last year was helpful. With this no changes in appetite, N,V, regurgitation, changes in bowel habits. Has been INTENTIONALLY trying to lose weight but no unintentional weight loss. 10/09/2023: * Normal esophagus (biopsy) * Normal stomach (biopsy) * Fundic gland polyps * Normal duodenum (biopsy) A. Duodenum, biopsy: Chronic inactive duodenitis. B. Stomach, random, biopsy: Antral-type and oxyntic mucosa with mild chronic inactive inflammation and regenerative changes; no Helicobacter organisms seen. C. Esophagus, lower, biopsy: Squamous epithelium within normal limits; no inflammation seen. D. Esophagus, middle, biopsy: Squamous epithelium within normal limits; no inflammation seen. 10/22/23: Here for post procedure follow up. Reports persistent abd pain with cramping lorna after passing BM. BM fluctuate between formed and watery. EGD results reviewed which are reassuring. 04/21/24: Doing well. No GI issues. Noted to have hepatomegaly on US Abd - chronic liver disease w/up only + for mild etOH use. Pt reports having 3-4 drinks in a week, never more than 2 in a single sitting. [facility] Medical History History of high blood pressure Surgical History Hx of colonoscopy Hx of carpal tunnel repair Hx of cervical spinal arthrodesis Hx of tubal ligation Family History Mother HTN (hypertension) Heart attack Father Prostate cancer Social History Household Members: Spouse Alcohol intake: current Alcohol intake frequency: 0-2 drinks per day Alcohol type: wine Patient Tobacco Use Status: Current someday Tobacco user Tobacco use type: Cigarette Substance Use Type: Marijuana Current occupational status: retired Current occupation: right hand dominant Physical Exam Vital Signs: Last Vital Signs Pulse 64 04/21/24 09:05 BP 119/64 04/21/24 09:05 BMI result Body Mass Index 21.6 No apparent distress Nonicteric Abdomen soft, nondistended Alert and oriented x3, normal gait Assessment & Plan Assessment & Plan (1) Hepatomegaly: Code(s): R16.0 - Hepatomegaly, not elsewhere classified Category: Medical Plan Ddx etOH related, vs transient. No concurrent LFT elevation. Plan: - MRI abd liver protocol to be done next month - If normal liver, no further w/up needed - If liver span even larger, can consider liver bx Follow up in 6 months Orders: Orders MR abdomen wo/w con Today R16.0 - Hepatomegaly, not elsewhere classified Medications: Discontinued pantoprazole Discontinued Reason: Patient no longer taking 20 mg PO DAILY 90 tabs 3RF Coding Level of Care Code Est Pt Level 4 (65664) Diagnoses Hepatomegaly R16.0
[2024-04-21 09:05] VITALS: BP 119/64; PULSE 64; BMI 21.6
== END 2024-04-21 09:30 | disposition home or self-care (01) ==
PROVIDERS: PCP Internal Medicine; Visit Provider Internal Medicine
DX: R16.0 Hepatomegaly, not elsewhere classified (principal)
CPT/HCPCS: 99214

== ENCOUNTER → 2024-04-21 08:58 | Outpatient (BNVA) | payer MEDICARE, OTHER, SELFPAY | PROVIDERS: PCP Internal Medicine; Visit Provider Internal Medicine | DX: R16.0 Hepatomegaly, not elsewhere classified (principal) | CPT/HCPCS: 99212 ==

== ENCOUNTER 2024-05-19 14:12 | Outpatient (REF) | payer MEDICARE, OTHER, SELFPAY ==
--- NOTE | ~2024-05-19 | MR_ITS ---
EXAMINATION: MR ABDOMEN WITHOUT AND WITH CONTRAST CLINICAL INFORMATION: Hepatomegaly. COMPARISON: Abdominal ultrasound November 14, 2023 TECHNIQUE: MR abdomen was performed without and with use of 6 mL intravenous Gadavist gadolinium contrast. Postcontrast images are performed in multiphase dynamic sequences. Imaging was performed in 3 planes. FINDINGS: LUNG BASES: No pleural effusion. LIVER, GALLBLADDER, AND BILIARY TREE: The liver measures 18.4 cm in sagittal dimension. The liver is smooth in contour and normal in signal. No focal hepatic lesion or biliary ductal dilatation is present. The common duct measures 5 mm at the ricardo hepatis. No intraductal filling defects. Gallstones. No pericholecystic changes. PANCREAS: Unremarkable. SPLEEN: Unremarkable. ADRENAL GLANDS: Unremarkable. KIDNEYS AND URETERS: The kidneys are symmetric in size and enhancement. No hydronephrosis. No perinephric stranding. GASTROINTESTINAL TRACT: No bowel obstruction. No ascites or fluid collection. LYMPH NODES: No bulky lymphadenopathy. VASCULAR: Normal caliber abdominal aorta. MR/MR abdomen wo/w con IMPRESSION: Borderline hepatomegaly. Cholelithiasis. Electronically signed by: Skyler Heredia MD 05/28/2024 10:32 AM EDT
[2024-05-19] MEDS: gadobutroL 7.5 ML VIAL IVPUSH (15:33)
== END 2024-05-19 14:13 | disposition home or self-care (01) ==
LOC: HO.MRI 14:12
PROVIDERS: PCP Internal Medicine; Visit Provider Internal Medicine
DX: R16.0 Hepatomegaly, not elsewhere classified (principal)
CPT/HCPCS: 74183; A9585

== ENCOUNTER 2024-12-22 15:23 | Outpatient (REF) | payer MEDICARE, OTHER, SELFPAY ==
[2024-12-22 16:41] LABS: Hematocrit 38.6 % (37.0-47.0); Hemoglobin 12.9 g/dl (12.0-16.0); Mean Corpuscular HGB Conc 33.4 g/dl (31.0-35.0); Mean Corpuscular Hemoglobin 30.6 pg (27.0-33.0); Mean Corpuscular Volume 91.5 fL (80.0-98.0); Mean Platelet Volume 9.6 fL (9.4-12.3); Platelet Count 254 X10*3/uL (160-400); Red Blood Count 4.22 X10*6/uL (4.20-5.50); Red Cell Distribution Width 12.6 % (11.0-16.0); White Blood Count 8.2 X10*3/uL (4.8-10.8)
[2024-12-22 16:59] LABS: Prothrombin Time 11.7 SEC (10.9-12.4)
[2024-12-22 17:07] LABS: Alanine Aminotransferase 15 U/L (0-31); Albumin Level 4.4 g/dL (3.5-5.0); Alkaline Phosphatase 81 U/L (39-117); Anion Gap 12 (12-20); Aspartate Amino Transferase 22 U/L (5-31); Bilirubin Total 0.3 mg/dL (0.0-1.0); Blood Urea Nitrogen 13 mg/dL (9-16); Calcium 9.7 mg/dL (8.4-10.2); Carbon Dioxide 26 mmol/L (22-29); Chloride 104 mmol/L (96-108); Estimated Glomerular Filt Rate > 60; Glucose Random 95 mg/dL (60-115); Potassium 3.8 mmol/L (3.3-5.1); Sodium 138 mmol/L (135-145)
--- OUTSIDE RECORDS SUMMARY | 2024-12-22 18:32 | XMS_ITS | Clinical Summary ---
Author Organization [facility] Address [address] [id number] Care Team Providers Care Braid Cutter Name Role Phone Jesús Dexter MD Primary Care Provider [phone] Immunizations Name Administration Dates Next Due Covid-19 [...] age to complete this topic Care Teams Braid Cutter Relationship Specialty Start Date End Date Jesús Dexter MD [address] [place] [id number] PCP - General Senior Copywriter 11/02/20
== END 2024-12-22 15:24 | disposition home or self-care (01) ==
LOC: HO.LAB 15:23
PROVIDERS: PCP Internal Medicine; Visit Provider Internal Medicine
DX: R16.0 Hepatomegaly, not elsewhere classified (principal); R10.9 Unspecified abdominal pain; Z12.11 Encounter for screening for malignant neoplasm of colon
CPT/HCPCS: 36415; 80053; 85027; 85610; 99212

== ENCOUNTER 2024-12-22 15:23 | Outpatient (AMB) | payer MEDICARE, OTHER, SELFPAY ==
--- NOTE | 2024-12-22 15:27 | A.OFFVIS_ITS ---
Vital Signs 12/22/24 15:29 Height 5 ft 5 in Weight 125 lb 10.616 oz BMI 20.9 BP 143/65 H Blood Pressure Location Lt brachial Position Sitting Pulse 75 Intake Visit Reasons: 6 month follow up GERD R/S from 10/20/24 Intake Note: Michaela presents in the office as a 6 month follow up. CC: She states that she had an US and she was told her liver is enlarged so she would like to follow up on that. Endoscope Technician Required: No Allergies bees Allergy (Severe, Uncoded 04/21/24 09:06) Hives HPI Comments Details: CC: abdominal pain and changes in BM 04/16/22: This is a 66 year old female who is here to establish care. Previously Dr Rice patient and shifting care as was not able to get an appt with his office. Has had symptoms for 7 years. Describes these symptoms as heartburn, and periumbilcal abdominal pain which is associated with constipation frequent burping which frustrates her. More recently has had loss of appetite, without loss of weight. When tries to eat becomes nauseous. In terms of bowel habits, alternating between constipation and diarrhea. Abdominal pain which is present almost everyday gets worse or is triggered by the BMs. Describes constipation as infrequent BMs (3-4/week). The BMs are not hard and doesnt have to strain. No blood in stools. Takes NSAIDs frequently, was using ibuprofen after dental work last week. GB still in. Smoker - 1 cig/day (finishes a pack in a month). Diet: loves onions, garlic which inevitably cause bloating and heartburn but finds it hard to avoid it completely. Also takes salads with cruciferous vegetables 4 times a week. Last colonoscopy around [address] Rice. Records pending. Was told to get it repeated in 10 years. Has never had an EGD. 06/16/23: Was lost to follow up. Had a visit over a year ago and that time main concern was abd pain postprandially with urge to defecate. Was booked for a follow up visit to review sx after med and dietary changes which she canceled as she was feeling well. Today, main CC is burning abd pain which seems to go across her abdomen from left to right. Occurs after some certain foods (which she does try to avoid) but once triggered lasts for many hours. Does not think tums helps it. Unable to recall if trial of PPI last year was helpful. With this no changes in appetite, N,V, regurgitation, changes in bowel habits. Has been INTENTIONALLY trying to lose weight but no unintentional weight loss. 10/09/2023: * Normal esophagus (biopsy) * Normal stomach (biopsy) * Fundic gland polyps * Normal duodenum (biopsy) A. Duodenum, biopsy: Chronic inactive duodenitis. B. Stomach, random, biopsy: Antral-type and oxyntic mucosa with mild chronic inactive inflammation and regenerative changes; no Helicobacter organisms seen. C. Esophagus, lower, biopsy: Squamous epithelium within normal limits; no inf lammation seen. D. Esophagus, middle, biopsy: Squamous epithelium within normal limits; no inflammation seen. 10/22/23: Here for post procedure follow up. Reports persistent abd pain with cramping lorna after passing BM. BM fluctuate between formed and watery. EGD results reviewed which are reassuring. 04/21/24: Doing well. No GI issues. Noted to have hepatomegaly on US Abd - chronic liver disease w/up only + for mild etOH use. Pt reports having 3-4 drinks in a week, never more than 2 in a single sitting. MRI liver protocol 05/2024: LIVER, GALLBLADDER, AND BILIARY TREE: The liver measures 18.4 cm in sagittal dimension. The liver is smooth in contour and normal in signal. No focal hepatic lesion or biliary ductal dilatation is present. The common duct measures 5 mm at the ricardo hepatis. No intraductal filling defects. Gallstones. No pericholecystic changes. 12/22/24: Here for routine follow up for metALD. No GI issues. No abd pain, N,V,D. No rectal bleeding. Has cut down wine even more drinks may be 1-2 times a week.Doesnt keep in the house. Last colo [address] Rice. Repeat recommended in 10 years. [facility]LY [facility] Medical History History of high blood pressure Surgical History Hx of colonoscopy Hx of carpal tunnel repair Hx of cervical spinal arthrodesis Hx of tubal ligation Family History Mother HTN (hypertension) Heart attack Father Prostate cancer Social History Household Members: Spouse Alcohol intake: current Alcohol intake frequency: 0-2 drinks per day Alcohol type: wine Patient Tobacco Use Status: Current someday Tobacco user Tobacco use type: Cigarette Substance Use Type: Marijuana Current occupational status: retired Current occupation: right hand dominant Review of Systems Const All systems reviewed & are unremarkable except as noted in HPI and below Physical Exam Vital Signs: Last Vital Signs Pulse 75 12/22/24 15:29 BP 143/65 H 12/22/24 15:29 BMI result Body Mass Index 20.9 No apparent distress Nonicteric Abdomen soft, nondistended Alert and oriented x3, normal gait Assessment & Plan Assessment & Plan (1) Hepatomegaly: Code(s): R16.0 - Hepatomegaly, not elsewhere classified Category: Medical (2) Colon cancer screening: Code(s): Z12.11 - Encounter for screening for malignant neoplasm of colon Category: Medical Plan 1. Hepatomegaly Stable. No concurrent LFT elevation. No abnl noted on MRI liver protocol. Plan: - Will get one more imaging in this year and if liver span remains stable can mutually discuss if need to continue surveillance - MELD labs ordered 2. CRC screening Will be due next year. Follow up 1 year Orders: Orders Complete Blood Count no Diff Today R10.9 - Unspecified abdominal pain, R16.0 - Hepatomegaly, not elsewhere classified Comprehensive Met. Panel Today R10.9 - Unspecified abdominal pain, R16.0 - Hepatomegaly, not elsewhere classified Prothrombin Time INR Today R10.9 - Unspecified abdominal pain, R16.0 - Hepatomegaly, not elsewhere classified US abdomen complete Today R16.0 - Hepatomegaly, not elsewhere classified Coding Level of Care Code Est Pt Level 3 (13393) Diagnoses Hepatomegaly R16.0 Colon cancer screening Z12.11
[2024-12-22 15:29] VITALS: BP 143/65; PULSE 75; BMI 20.9
--- OUTSIDE RECORDS SUMMARY | 2024-12-22 18:05 | XMS_ITS | Clinical Summary ---
Author Organization [facility] Address [address] [id number] Care Team Providers Care Privacy Analyst Name Role Phone Jesús Dexter MD Primary Care Provider [phone] Immunizations Name Administration Dates Next Due Covid-19 (Pfizer) Dilution Required 11/02/2020,0 10/12/2020 Social History Tobacco Use Types Packs/Day Years Used Date Smoking Tobacco: Never Assessed Sex and Gender Information Value Date Recorded Sex Assigned at Female 10/12/2020 4:01 PM EST Gender Identity Not on file Sexual Orientation Not on file Plan of Treatment Health Maintenance Due Date Last Done Comments Hepatitis C Screening 1954 Depression Screening 1966 Preventative Health Evaluation 1972 DTap / Tdap / Td (1 - Tdap) 1973 Colon Cancer Screening (Colonoscopy) 1999 Breast Cancer Screening (Mammogram) 2004 Shingrix-Zoster Vaccine (1 o f 2) 2004 Fall Risk Assessment 2019 Osteoporosis Screening (DEXA Scan) 2019 Pneumococcal Vaccine (1 of 1 - PCV) 2019 COVID-19 Vaccine (2023-2 5 season) 2024 11/02/2020, 10/12/2020 Influenza Vaccine (#1) 2024 RSV Adult > 60+ Yrs or (1 - 1-dose 75+ series) 2029 Hepatitis B Vaccines Aged Out No long er eligible based on patient's age to complete this topic RSV Ped < 20 months Aged Out No longe r eligible based on patient's age to complete this topic Care Teams Privacy Analyst Relationship Specialty Start Date End Date Jesús Dexter MD [address] [place] [id number] PCP - General Product Development Carpenter 11/02/20
== END 2024-12-22 15:54 | disposition home or self-care (01) ==
LOC: HO.HGI 15:24
PROVIDERS: PCP Internal Medicine; Visit Provider Internal Medicine
DX: R16.0 Hepatomegaly, not elsewhere classified (principal)
CPT/HCPCS: 99213

== ENCOUNTER 2025-01-14 08:43 | Outpatient (AMB) | payer MEDICARE, OTHER, SELFPAY ==
--- NOTE | 2025-01-14 08:44 | MHC.PC.OV ---
Vital Signs 01/14/25 08:49 Height 5 ft 5 in Weight 58.967 kg BMI 21.6 BP 120/66 Respiration 12 Pulse 70 Pulse Source Pulse Oximeter Temp 98.0 F Temp Source Temporal Artery Scan Pulse Oximetry (%) 97 Oxygen Delivery Method Room Air Intake Visit Reasons: Routine - see comments Stoker Installation Mechanic Required: No Accompanied by: Self / Same As Patient Allergies bees Allergy (Severe, Uncoded 01/14/25 08:44) Hives HPI HPI Comments History of Present Illness Details 69-year-old female with history of polyneuropathy, sciatica, anxiety, hypertension presents to the office today for routine follow-up and to establish care. She reports she is doing well. 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 She enjoys spending time with her grandson's and goes for walks often. She does continue smoking about 2 packs per week cigarettes but does follow with lung cancer screening at [facility]. She reports her anxiety is well-controlled with Zoloft as well as lifestyle. She is taking gabapentin 300 mg up to 5 times daily with good management of her sciatica. She also uses tennis balls for therapy as well as massage. She is status post carpal tunnel release in the right wrist but now has numbness constantly in the 1st 3 fingers of the right hand. She is right-hand dominant. She otherwise has no concerns. Due for mammogram and DEXA scan. Colonoscopy up-to-date. [facility] Medical History (Updated 01/14/25 @ 09:14 by VERONICA Sampson) Cigarette smoker Paresthesias in right hand Sciatica Anxiety HTN (hypertension) Surgical History (Updated 01/14/25 @ 08:57 by VERONICA Sampson) Hx of colonoscopy (~12/20/15) Hx of carpal tunnel repair Hx of cervical spinal arthrodesis Hx of tubal ligation Family History Mother HTN (hypertension) Heart attack Father Prostate cancer Social History Household Members: Spouse Alcohol intake: current Alcohol intake frequency: 0-2 drinks per day Alcohol type: wine Patient Tobacco Use Status: Current someday Tobacco user Tobacco use type: Cigarette Substance Use Type: Marijuana Current occupational status: retired Current occupation: right hand dominant Review of Systems Const All systems reviewed & are unremarkable except as noted in HPI and below Physical exam (Primary Care) Vital Signs: Last Vital Signs Temp 98.0 F 01/14/25 08:49 Pulse 70 01/14/25 08:49 Resp 12 01/14/25 08:49 BP 120/66 01/14/25 08:49 Pulse Ox 97 01/14/25 08:49 Oxygen Delivery Method Room Air 01/14/25 08:49 BMI result Body Mass Index 21.6 Tobacco/Smoking Status: Tobacco use Status Patient Tobacco Use Status Current someday Tobacco 01/14/25 08:47 Tobacco use type Cigarette 01/14/25 08:47 Const Other: Constitutional - Awake and Alert, No apparent distress Eyes - PERRLA, EOMI Cardiovascular - S1S2, RRR, No edema Respiratory - Normal lung expansion, Normal respiratory effort, No respiratory distress, CTA bilaterally Extremities - no calf tenderness bilaterally, no swelling Skin - Warm/Dry Neurological - Alert & oriented x3 Psychological - Appropriate affect Coding Level of Care Code New Pt Level 4 (48282) Complex EM visit Add On G2211 Diagnoses HTN (hypertension) I10 Anxiety F41.9 Sciatica M54.30 Paresthesias in right hand R20.2 Cigarette smoker F17.210 Assessment & Plan Assessment & Plan (1) HTN (hypertension): Code(s): I10 - Essential (primary) hypertension Category: Medical Plan: Controlled in the office. Continue metoprolol 25 mg ER and lisinopril 5 mg daily. (2) Anxiety: Code(s): F41.9 - Anxiety disorder, unspecified Category: Medical Plan: Stable. Continue sertraline 150 mg daily. Continue using coping mechanisms. (3) Sciatica: Code(s): M54.30 - Sciatica, unspecified side Category: Medical Plan: Affecting the right upper and right lower extremities. Continue with lifestyle modifications and exercises for alleviation of discomfort. Continue using gabapentin as needed. (4) Paresthesias in right hand: Comment: s/p carpal tunnel release 2009 Code(s): R20.2 - Paresthesia of skin Category: Medical Plan: Stable but in dominant hand. She will continue exercises and gabapentin as needed (5) Cigarette smoker: Code(s): F17.210 - Nicotine dependence, cigarettes, uncomplicated Category: Social Hx Plan: Current some day smoker. Discussed the importance of total cessation. She will continue following for lung cancer screenings at [facility]. Plan Follow-up in 6 months with labs to be completed prior to visit. She is due for screening mammogram and DEXA scan which are ordered. Continue weight-bearing exercise and vitamin-D supplementation for osteoporosis prevention. Discussed the importance of total smoking cessation as well. Continue medications as prescribed. Orders: Orders MM tomosynthesis screening BI Today Z12.31 - Encounter for screening mammogram for malignant neoplasm of breast Basic Metabolic Panel 5 Months F41.9 - Anxiety disorder, unspecified, I10 - Essential (primary) hypertension, M54.30 - Sciatica, unspecified side XR DEXA axial skeleton Today Z13.820 - Encounter for screening for osteoporosis Lipid Panel 5 Months F41.9 - Anxiety disorder, unspecified, I10 - Essential (primary) hypertension, M54.30 - Sciatica, unspecified side Vitamin D 25-OH Total 5 Months F41.9 - Anxiety disorder, unspecified, I10 - Essential (primary) hypertension, M54.30 - Sciatica, unspecified side
[2025-01-14 08:49] VITALS: BP 120/66; PULSE 70; RESP 12; TEMP 36.7; O2SAT 97; BMI 21.6
--- OUTSIDE RECORDS SUMMARY | 2025-01-14 08:59 | XMS_ITS | Clinical Summary ---
Author Organization [facility] Address [address] [id number] Care Team Providers Care Coach Tour Driver Name Role Phone Jesús Dexter MD Primary Care Provider [phone] Immunizations Name Administration Dates Next Due Covid-19 [...] age to complete this topic Care Teams Coach Tour Driver Relationship Specialty Start Date End Date Jesús Dexter MD [address] [place] [address] PCP - General Sales Service Manager 11/02/20
== END 2025-01-14 09:10 | disposition home or self-care (01) ==
LOC: HO.HMCHD 08:44
PROVIDERS: PCP Internal Medicine; Visit Provider Physician Assistant
DX: I10 Essential (primary) hypertension (principal); F41.9 Anxiety disorder, unspecified; M54.30 Sciatica, unspecified side; R20.2 Paresthesia of skin; F17.210 Nicotine dependence, cigarettes, uncomplicated

== ENCOUNTER → 2025-01-14 08:43 | Outpatient (BNVA) | payer MEDICARE, OTHER, SELFPAY | PROVIDERS: PCP Internal Medicine; Visit Provider Physician Assistant | DX: I10 Essential (primary) hypertension (principal); G62.9 Polyneuropathy, unspecified; M54.30 Sciatica, unspecified side; R20.0 Anesthesia of skin; F41.9 Anxiety disorder, unspecified; R20.2 Paresthesia of skin; F17.210 Nicotine dependence, cigarettes, uncomplicated | CPT/HCPCS: 99202 ==

== ENCOUNTER 2025-02-15 11:10 | Outpatient (REF) | payer MEDICARE, OTHER, SELFPAY ==
--- NOTE | ~2025-02-15 | US_ITS ---
EXAMINATION: US ABDOMEN COMPLETE CLINICAL INFORMATION: Hepatomegaly. COMPARISON: MRI abdomen 05/19/2024. Ultrasound abdomen 11/14/2023. TECHNIQUE: Real-time imaging of the abdominal viscera. FINDINGS: PANCREAS: Visualized portions are unremarkable. ABDOMINAL AORTA: The proximal, mid, and distal segments are non-aneurysmal. Mild ectasia of the distal most aspect of the aorta at 1.8 cm. INFERIOR VENA CAVA: Visualized portions are normal. LIVER: The liver is enlarged. Right hepatic lobe measures 17.8 cm. The liver contour is normal. Minimally increased parenchymal echogenicity present. This is likely fatty infiltration. No focal hepatic lesion. There is no intrahepatic biliary duct dilatation seen. GALLBLADDER: Gallbladder demonstrates intraluminal mobile gallstones. No wall thickening or pericholecystic fluid. Negative sonographic Antoine's sign. COMMON BILE DUCT: Normal in caliber measuring 0.4 cm in diameter. RIGHT KIDNEY: No hydronephrosis. No renal calculi or focal parenchymal lesions. The kidney measures 9.7 cm in maximum dimension. LEFT KIDNEY: No hydronephrosis. No renal calculi or focal parenchymal lesions. The kidney measures 10.6 cm in maximum dimension. SPLEEN: The spleen measures 9.8 cm in maximum dimension. FREE FLUID: None. US/US abdomen complete IMPRESSION: 1. Borderline hepatomegaly with minimally increased hepatic echogenicity, most likely on the basis of mild fatty infiltration. No focal hepatic lesion or intrahepatic biliary dilatation. 2. Cholelithiasis. No evidence of gallbladder inflammation. Electronically signed by: Chester Funes MD 02/15/2025 12:25 PM EDT
--- OUTSIDE RECORDS SUMMARY | 2025-02-15 12:47 | XMS_ITS | Clinical Summary ---
Author Organization [facility] Address [address] [id number] Care Team Providers Care Charge Entry Name Role Phone Jesús Dexter MD Primary Care Provider [phone] Immunizations Name Administration Dates Next Due Covid-19 [...] 5 season) 2024 11/02/2020, 10/12/2020 Influenza Vaccine (Season Ended) 2025 RSV Adult > 60+ Yrs or (1 - 1-dose 75+ series) 2029 Hepatitis B Vaccines Aged Out No long er eligible based on patient's age to complete this topic RSV Ped < 20 months Aged Out No longe r eligible based on patient's age to complete this topic Care Teams Charge Entry Relationship Specialty Start Date End Date Jesús Dexter MD [address] [place] [address] PCP - General Emergency Vehicle Driver 11/02/20
== END 2025-02-15 11:11 | disposition home or self-care (01) ==
LOC: HO.US 11:10
PROVIDERS: PCP Internal Medicine; Visit Provider Internal Medicine
DX: R16.0 Hepatomegaly, not elsewhere classified (principal)
CPT/HCPCS: 76700

== ENCOUNTER → 2025-02-15 11:11 | Outpatient (BNV) | payer MEDICARE, OTHER, SELFPAY | PROVIDERS: PCP Internal Medicine; Visit Provider Radiology Diagnostic Radiology | DX: K80.20 Calculus of gallbladder without cholecystitis without obstruction (principal) | CPT/HCPCS: 76700 ==

== ENCOUNTER 2025-04-13 12:35 | Outpatient (REF) | payer MEDICARE, OTHER, SELFPAY ==
--- NOTE | ~2025-04-13 | MM_ITS ---
EXAMINATION: DXA BONE DENSITY AXIAL HISTORY: Z13.820 - Encounter for screening for osteoporosis TECHNIQUE: Epizyme Dual energy absorptiometry (DEXA) of the lumbar spine, total left hip, and femoral neck was performed. COMPARISON: Comparison is made with the prior examination dated 10/19/2019. FINDINGS: The bone mineral density of the lumbar spine is 1.432 g/cm2, corresponding to a T-score of 2.2, and a Z-score of 4.1. This is indicative of normal bone mineral density. This represents a BMD change of 1.5% compared to the prior exam. This is not statistically significant. The bone mineral density of the left total hip is 0.964 g/cm2, corresponding to a T-score of -0.3, and a Z-score of 1.3. This is indicative of normal bone mineral density. This represents a BMD change of -6.9% compared to the prior exam. This is statistically significant. The bone mineral density of the left femoral neck is 0.913 g/cm2, corresponding to a T-score of -0.9, and a Z-score of 1.0. This is indicative of normal bone mineral density. This represents a BMD change of 0.6% compared to the prior exam. FRACTURE RISK: The FRAX index suggests a ten year probability of major osteoporotic fracture of 8.0%, and of hip fracture 1.4%. MM/XR DEXA axial skeleton IMPRESSION: Based on bone mineral density, and according to World Health Organization (WHO) criteria, the diagnosis is consistent with normal bone mineral density. Statistically, 68% of repeat scans fall within 1 SD (+/- 0.010 g/cm2 for AP spine L1-L4) and 1 SD (+/- 0.012 g/cm2 for femur total) FRAX is a trademark of the [employer], a World Health Organization (WHO) Collaborating Center. Electronically signed by: Kyrie Hsu MD 04/13/2025 01:31 PM EDT
--- NOTE | ~2025-04-13 | MM_ITS ---
EXAMINATION: MM SCREENING DIGITAL BREAST TOMOSYNTHESIS, BILATERAL CLINICAL INFORMATION: Screening. Asymptomatic. COMPARISON: Comparison made to multiple prior, most recent April 16, 2023, and most remote June 29, 2019. TECHNIQUE: Digital breast tomosynthesis is performed in both the craniocaudal and mediolateral oblique views along with computer-aided detection (CAD). Synthesized 2D images are generated from the tomosynthesis. FINDINGS: BREAST COMPOSITION: The breasts are heterogeneously dense, which may obscure small masses (ACR BI-RADS breast composition Category c). BILATERAL BREASTS: No significant masses, suspicious calcifications or other abnormalities are seen in either breast. MM/MM tomosynthesis screening BI IMPRESSION: BILATERAL BREASTS: Negative, no mammographic evidence of malignancy. Normal interval follow-up is recommended in 12 months. ASSESSMENT: BI-RADS 1 - Negative RECOMMENDATION: Routine annual mammography screening. FOLLOW-UP: 1 year F/U This examination should not preclude the clinical evaluation of a suspicious palpable abnormality. This patient's information was entered into a reminder system with a target due date for their next mammogram. Electronically signed by: Dhruv Jaramillo MD 04/19/2025 08:01 AM EDT
--- OUTSIDE RECORDS SUMMARY | 2025-04-13 13:10 | XMS_ITS | Clinical Summary ---
Author Organization [facility] Address [address] [place] [address] Phone Care Team Providers Care Test Deskman Name Role Phone Jesús Dexter MD Primary Care Provider [phone] Encounters Date Type Department Care Team Description 03/30/2025 6:59 AM EDT - 03/30/2025 11:59 PM EDT Hospital Encounter [facility] CT Scan [address] [place] [address] Encounter for screening for malignant neoplasm of respiratory organs; Personal history of nicotine dependence Discharge Disposition: Home or Self Care 02/25/2025 Telephone Lung Screening Program - [place] [address] [facility] [address] [place] [id number] [place] Appointment (1st notification ) from Last 3 Months Social History Tobacco Use Types Packs/Day Years Used Date Smoking Tobacco: Never Assessed Comments Unknown Sex and Gender Information Value Date Recorded Sex Assigned at Female 03/17/2025 10:56 PM EDT Legal Sex Female 10:51 AM EST Gender Identity Not on file Sexual Orientation Not on file Plan of Treatment Health Maintenance Due Date Last Done Comments Breast Cancer Screening 1955 DTaP,Tdap,and Td Vaccines (1 - Tdap) 1973 Zoster Vaccines (1 of 2) 2004 Pneumococcal Vaccine: 50+ Years (2 of 2 - PCV) 04/17/2018 04/17/2017 Colorectal Cancer Screening: Colonoscopy 08/05/2022 Falls Risk Assessment 08/05/2022 Hepatitis C Screening 08/05/2022 Medicare Annual Wellness Visit 08/05/2022 Osteoporosis Screening (Bone Density Screening) 08/05/2022 Social Influencers of Health Screening 08/05/2022 Depression Screening 09/01/2024 COVID-19 Vaccine ( season) 2024 05/26/2024, 06/17/2023, 09/13/2022, Additional history exists Influenza Vaccine (#1) 2025 , 06/17/2023, 2022, Additional history exists Lung Cancer Screening (Low Dose CT) 03/30/2026 03/30/2025, 03/24/2024, 03/19/2024, Additional history exists RSV Immunization Adult Patients Completed 06/17/2023 HIB Vaccines Aged Out No longer eligi ble based on patient's age to complete this topic HPV Vaccines Aged Out No longer eligi ble based on patient's age to complete this topic Hepatitis A Vaccines Aged Out No long er eligible based on patient's age to complete this topic Hepatitis B Vaccines Aged Out No long er eligible based on patient's age to complete this topic IPV Vaccines Aged Out No longer eligi ble based on patient's age to complete this topic MMR Vaccines Aged Out No longer eligi ble based on patient's age to complete this topic Meningococcal ACWY Vaccine Aged Out N o longer eligible based on patient's age to complete this topic Meningococcal B Vaccine Aged Out No l onger eligible based on patient's age to complete this topic RSV Immunization Patients Under 20 months Aged Out No longer eligible based on patient's age to complete this topic Varicella Vaccines Aged Out No longer eligible based on patient's age to complete this topic Procedures Procedure Name Priority Date/Time Associated Diagnosis Comments CT LUNG SCREENING Routine 03/30/2025 7:0 8 AM EDT Encounter for screening for malignant neoplasm of respiratory organs Personal history of nicotine dependence from Last 3 Months Results * CT Lung Screening (03/30/2025 7:08 AM EDT) Anatomical Region Laterality Modality Chest Computed Tomogra phy 04/01/2025 6:11 PM EDT Impressions 04/01/2025 6:18 PM EDT Impression: No suspicious pulmonary nodule. Lung-RADS Category: Lung-RADS 1: No nodules or definitely benign nodules. Continue annual screening with Low Dose Chest CT in 12 months. Telerad VERONICA ([id number]) -------- FINAL REPORT -------- Dictated By: pOal Arnold Dictated Date: 04/01/2025 18:11 ET Assigned Physician: Opal Arnold Reviewed and Electronically Signed By: Opal Arnold Signed Date: 04/01/2025 18:18 ET Workstation ID: [id number] Transcribed By: Self Edit Transcribed Date: 04/01/2025 18:11 ET Narrative 04/01/2025 6:18 PM EDT History: 69 year-old 41 pack-year former smoker, asymptomatic, for lung cancer screening. Quit smoking 9 years ago. Comparison: 03/19/24 Technique: Helical volumetric imaging of the thorax was performed, using low- dose technique, without IV contrast. DLP: 116.81 mGy/cm CTDIvol: 3.22 mGy Coquelux VCT Iterative reconstruction technique Findings: Lungs and Airways: The trachea and central bronchial tree remain patent. Diffuse bronchial wall thickening is again seen, consistent with bronchitis. Centrilobular emphysema is noted. There are thin curvilinear bandlike opacities in the lower lobes, unchanged, consistent with subsegmental atelectasis or scar. No suspicious developing pulmonary nodule is seen. Pleura: No pleural or pericardial effusions are identified. Base of neck, mediastinum and heart: The heart remains normal in size. Three- vessel coronary artery calcification is noted. The thyroid gland appears unremarkable. No developing thoracic lymphadenopathy is seen. Soft tissues: The overlying soft tissues appear normal. Abdomen: This study was performed without contrast and with lower than standard dose. These factors reduce the sensitivity for detection of small lesions in the upper abdomen. No significant abnormality is seen. Thick, flowing hyperostosis along the anterior aspect of the thoracic spine suggests diffuse idiopathic skeletal hyperostosis (DISH). Cervical spine surgical fusion sequela are partially imaged. Procedure Note Opal Arnold MD - 04/01/2025 History: 69 year-old 41 pack-year former smoker, asymptomatic, for lungcancer screening. Quit smoking 9 years ago. Comparison: 03/19/24 Technique: Helical volumetric imaging of the thorax was performed, usinglow-dose technique, without IV contrast. DLP: 116.81 mGy/cm CTDIvol: 3.22 mGy [employer]ium Technologies[employer]OW[employer] VCT Iterative reconstruction technique Findings: Lungs and Airways: The trachea and central bronchial tree remain patent.Diffuse bronchial wall thickening is again seen, consistent withbronchitis. Centrilobular emphysema is noted. There are thin curvilinearbandlike opacities in the lower lobes, unchanged, consistent withsubsegmental atelectasis or scar. No suspicious developing pulmonary nodule is seen. Pleura: No pleural or pericardial effusions are identified. Base of neck, mediastinum and heart: The heart remains normal in size.Three- vessel coronary artery calcification is noted. The thyroid glandappears unremarkable. No developing thoracic lymphadenopathy is seen. Soft tissues: The overlying soft tissues appear normal. Abdomen: This study was performed without contrast and with lower thanstandard dose. These factors reduce the sensitivity for detection of smalllesions in the upper abdomen. No significant abnormality is seen. Thick, flowing hyperostosis along the anterior aspect of the thoracicspine suggests diffuse idiopathic skeletal hyperostosis (DISH). Cervicalspine surgical fusion sequela are partially imaged. IMPRESSION: Impression: No suspicious pulmonary nodule. Lung-RADS Category: Lung-RADS 1: No nodules or definitely benign nodules.Continue annual screening with Low Dose Chest CT in 12 months. Telerad VERONICA ([id number]) -------- FINAL REPORT -------- Dictated By: Opal Arnold Dictated Date: 04/01/2025 18:11 ET Assigned Physician: Opal Arnold Reviewed and Electronically Signed By: Opal Arnold Signed Date: 04/01/2025 18:18 ET Workstation ID: [id number] Transcribed By: Self Edit Transcribed Date: 04/01/2025 18:11 ET us Jonas Rizzo MD IM CT PROCEDURES Final Result from Last 3 Months Insurance MEDICARE [facility] Care Teams Test Deskman Relationship Specialty Start Date End Date Jesús Dexter MD [address] [place] [address] Dr [place] PCP - General Label Fuser Tender 11/02/20
--- OUTSIDE RECORDS SUMMARY | 2025-04-13 13:10 | XMS_ITS | Encounter Summary ---
Author Organization [facility] Address [address] [place] [address] Phone Care Team Providers Care Market Development Director Name Role Phone Pcp, Not Required Primary Care Provider Unavaila ble Encounter Details Date Type Department Care Team (Late st Contact Info) Description 05/01/2017 Procedure Pass [facility] Periop [address] [place] [address] Social History Tobacco Use Types Packs/Day Years Used Date Smoking Tobacco: Former Cigarettes 0.5 40 0 04/15/1977 - 04/15/2017 Smokeless Tobacco: Never Alcohol Use Standard Drinks/Week Comments Yes 0 (1 standard drink = 0.6 oz pur e alcohol) one drink a week Comments Unknown Sex and Gender Information Value Date Recorded Sex Assigned at Not on file Legal Sex Female 7:28 PM EST Gender Identity Not on file Sexual Orientation Not on file documented as of this encounter Plan of Treatment Not on file documented as of this encounter Visit Diagnoses Not on filedocumented in this encounter Care Teams Market Development Director Relationship Specialty Start Date End Date Pcp, Not Required [address] [place] [id number] PCP - General 03/26/17 documented as of this encounter Additional Source Comments The information contained in this document represents components of the legal health record. It is not the complete legal health record.[facility]
--- OUTSIDE RECORDS SUMMARY | 2025-04-13 13:10 | XMS_ITS | Clinical Summary ---
Author Organization [facility] Address [address] [id number] Care Team Providers Care Box Maker Paperboard Name Role Phone Jesús Dexter MD Primary Care Provider [phone] Immunizations Name Administration Dates Next Due Covid-19 [...] season) 2024 11/02/2020, 10/12/2020 Influenza Vaccine (#1) 2025 RSV Adult > 60+ Yrs or (1 - 1-dose 75+ series) 2029 Hepatitis B Vaccines Aged Out No long er eligible based on patient's age to complete this topic RSV Ped < 20 months Aged Out No longe r eligible based on patient's age to complete this topic Care Teams Box Maker Paperboard Relationship Specialty Start Date End Date Jesús Dexter MD [address] [place] [address] PCP - General Hand Spinner 11/02/20
--- OUTSIDE RECORDS SUMMARY | 2025-04-13 13:11 | XMS_ITS | Patient Health Record ---
Author Organization [facility] Address [address] [place] [address] Care Team Providers Care Recruiter Manager Name Role Phone Guerita (RETIRED) Jesús DENNIS Primary Care Provide r Unavailable Kyrie Rice Unavailable [phone] Reason For Referral No Information Medications Medication SIG (Take, Route, Frequency, Duration) Notes Start Date End Date Status Suprep Bowel Prep 1 kit as directed Oral ly as directed for 1 dose 05/02/2015 Active ProAir HFA 108 (90 Base) MCG/ACT 2 puffs as needed Inhalation every 4 hrs Active Omeprazole 20 MG 1 capsule Orally Onc e a day for 90 days 05/02/2015 Active Zoloft Active Toprol XL Active Neurontin Active Problems Problem Type SNOMED Code ICD Code Onset Dates Problem Status W/U Status Risk Notes Problem Atrophic gastritis (35478000) Atrophic gastritis without mention of hemorrhage (535.10) Active confirmed Problem Esophageal reflux (075048812) Esophageal reflux (530.81) Active confirmed Problem Irritable bowel syndrome (06132295) Irritable bowel syndrome (564.1) Active confirmed Problem Screening for malignant neoplasm of colon (686626423) Special screening for malignant neoplasms, colon (V76.51) Active confirmed Plan Of Treatment Future Test Test Name Order Date COLONOSCOPY 05/02/2015 Insurance Providers Payer Name Payer Address Payer Phone Subscriber Number Group Number Insured Name Patient Relationship to Insured Coverage Start Date Coverage End Date [facility] [address] [place] [address] [id number] DELVIS MARTINEZ Self - patient is the insured Medical (General) History Medical History History ICD Code GERD-EGD in 01/2011--HH, no B arrett's, no sig esophagitis--normal duodenal bx, neg. H.pylori Denies NE,DM,CVA,renal disease history of migraines flexible sigmoidoscopy 01-19-1998 COPD Screening colonoscopy in 03/02 005--negative except for diverticulosis and internal hemorrhoids HTN Nerve pain from the carpal tunnel surg elisha and sciatica-on Neurontin Anxiety Neg. abdominal U/S in 01/2011 IBS Surgical History Surgery Date(Month/Year) carpal tunnel release-both hands tubal ligation
== END 2025-04-13 12:36 | disposition home or self-care (01) ==
LOC: HO.MAMMO 12:35
PROVIDERS: PCP Physician Assistant; Visit Provider Physician Assistant
DX: Z12.31 Encounter for screening mammogram for malignant neoplasm of breast (principal); Z13.820 Encounter for screening for osteoporosis; Z78.0 Asymptomatic menopausal state
CPT/HCPCS: 77063; 77067; 77080

== ENCOUNTER → 2025-04-13 13:00 | Outpatient (BNV) | payer MEDICARE, OTHER, SELFPAY | PROVIDERS: PCP Physician Assistant; Visit Provider Radiology Diagnostic Radiology | DX: E28.39 Other primary ovarian failure (principal) | CPT/HCPCS: 77080 ==

== ENCOUNTER 2025-06-21 14:44 | Outpatient (AMB) | payer MEDICARE, OTHER, SELFPAY ==
--- NOTE | 2025-06-21 13:43 | MHC.PC.OV ---
Vital Signs 06/21/25 14:48 Height 5 ft 5 in Weight 57.606 kg BMI 21.1 BP 120/58 L Blood Pressure Location Rt brachial Position Sitting Respiration 16 Pulse 58 Pulse Source Pulse Oximeter Temp 98.2 F Temp Source Temporal Artery Scan Pulse Oximetry (%) 96 Oxygen Delivery Method Room Air Intake Visit Reasons: 5 month F/U Top Lift Scourer Required: No Accompanied by: Self / Same As Patient Allergies bees Allergy (Severe, Uncoded 01/14/25 08:44) Hives Tobacco use date assessed: 06/21/25 Fall risk assessment: No Falls in past year Last assessed Fall Risk: 06/21/25 Dental Screening Dental Screen Date: 06/21/25 Did you have a dental visit in the last 12 months?: Yes Did you have a dental problem in the last 6 months where you did not have access to dental care?: No Was dental information given to patient?: Patient has dentist HPI HPI Comments History of Present Illness Details 69-year-old female with history of polyneuropathy, sciatica, anxiety, hypertension presents to the office today for routine follow-up. Polyneuropathy/left-sided sciatica-stable on gabapentin 300 mg 5 times daily. Also goes for massages every 4 weeks which helps Anxiety-on sertraline 150 mg daily and stable overall Hypertension-blood pressure in the office today 120/58. On lisinopril 5 mg daily metoprolol 25 mg ER. Concerns: Smoking cessation-quit smoking 3 weeks ago. Doing well. Following with lung cancer screening through [facility] Bilateral carpal tunnel syndrome-has followed with multiple surgeons including in [place]. Has had surgery without effect. Has limited fine motor skills Health maintenance: Lung cancer screening as above Last screening mammogram 04/25 with 1 year follow-up advised Last DEXA scan 04/2025 which was normal Last colonoscopy 12/2015 with 10 year follow-up advised ROS: General: No fevers, malaise, unintentional weight loss HEENT: No blurred vision, diplopia. No sore throat, nasal congestion, rhinorrhea, sinus pain, ear pain Cardiovascular: No chest pain, palpitations, or leg edema Respiratory: No shortness of breath, wheezing, cough GI: No abdominal pain, nausea, vomiting, diarrhea, constipation, melena, hematochezia : No dysuria, hematuria, increased urinary frequency, decreased urinary output MSK: No myalgia, back pain Neuro: No headaches, weakness, paresthesias see HPI Skin: No rashes or lesions EXAM: Constitutional - Awake and Alert, No apparent distress Eyes - PERRL Cardiovascular - S1S2, RRR, No edema Respiratory - Normal lung expansion, Normal respiratory effort, No respiratory distress, CTA bilaterally Extremities - no calf tenderness bilaterally, no swelling Skin - Warm/Dry Neurological - Alert & oriented x3 Psychological - Appropriate affect PFSH Medical History (Updated 01/21/25 @ 08:50 by VERONICA Sampson) Cigarette smoker Paresthesias in right hand Sciatica Anxiety HTN (hypertension) Surgical History (Updated 01/14/25 @ 08:57 by VERONICA Sampson) Hx of colonoscopy (~12/20/15) Hx of carpal tunnel repair Hx of cervical spinal arthrodesis Hx of tubal ligation Family History Mother HTN (hypertension) Heart attack Father Prostate cancer Social History Household Members: Spouse Housing: House Alcohol intake: current Alcohol intake frequency: 0-2 drinks per day Alcohol type: wine Patient Tobacco Use Status: Former Tobacco user Tobacco use type: Cigarette Years Smoked: 50 years on and off-quit 3 weeks ago e-Cigarette/Vaping Use: Currently Using Substance Use Type: Marijuana Current occupational status: employed and retired 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 How often do you have a drink containing alcohol?: Monthly or less 2. How many drinks containing alcohol do you have on a typical day when you are drinking?: 1 or 2 Total Score: 1 Physical exam (Primary Care) Vital Signs: Last Vital Signs Temp 98.2 F 06/21/25 14:48 Pulse 58 06/21/25 14:48 Resp 16 06/21/25 14:48 BP 120/58 L 06/21/25 14:48 Pulse Ox 96 06/21/25 14:48 Oxygen Delivery Method Room Air 06/21/25 14:48 BMI result Body Mass Index 21.1 Tobacco/Smoking Status: Tobacco use Status Tobacco use date assessed 06/21/25 06/21/25 13:45 Patient Tobacco Use Status Former Tobacco user 06/21/25 14:55 Tobacco use type Cigarette 06/21/25 13:45 e-Cigarette/Vaping Use Currently Using 06/21/25 14:55 Coding Level of Care Code Est Pt Level 4 (16469) Complex EM visit Add On G2211 Diagnoses HTN (hypertension) I10 Anxiety F41.9 Sciatica M54.30 Paresthesias in right hand R20.2 Cigarette smoker F17.210 Assessment & Plan Assessment & Plan (1) HTN (hypertension): Code(s): I10 - Essential (primary) hypertension Category: Medical Plan: Controlled in the office. Continue metoprolol 25 mg ER and lisinopril 5 mg daily. (2) Anxiety: Code(s): F41.9 - Anxiety disorder, unspecified Category: Medical Plan: Stable. Continue sertraline 150 mg daily. Continue using coping mechanisms. (3) Sciatica: Code(s): M54.30 - Sciatica, unspecified side Category: Medical Plan: Affecting the right upper and right lower extremities. Continue with lifestyle modifications and exercises for alleviation of discomfort. Continue using gabapentin as needed. (4) Paresthesias in right hand: Comment: s/p carpal tunnel release 2009 Code(s): R20.2 - Paresthesia of skin Category: Medical Plan: Stable but in dominant hand. She will continue exercises and gabapentin as needed (5) Cigarette smoker: Code(s): F17.210 - Nicotine dependence, cigarettes, uncomplicated Category: Social Hx Plan: Commended on 3 weeks of cessation, encouraged continuance. Continue following with [facility] for lung cancer screening Plan Follow-up in 6 months with labs to be completed prior to visit. Orders: Orders Liver Panel 6 Months F41.9 - Anxiety disorder, unspecified, I10 - Essential (primary) hypertension Basic Metabolic Panel 6 Months F41.9 - Anxiety disorder, unspecified, I10 - Essential (primary) hypertension Lipid Panel 6 Months F41.9 - Anxiety disorder, unspecified, I10 - Essential (primary) hypertension
[2025-06-21 14:48] VITALS: BP 120/58; PULSE 58; RESP 16; TEMP 36.8; O2SAT 96; BMI 21.1
--- OUTSIDE RECORDS SUMMARY | 2025-06-21 19:48 | XMS_ITS | Encounter Summary ---
Author Organization [facility] Address [address] [place] [address] Phone Care Team Providers Care Magnetic Grinder Operator Name Role Phone Pcp, Not Required Primary Care Provider Unavaila ble Encounter Details Date Type Department Care Team (Late st Contact Info) Description 05/01/2017 Procedure Pass [facility] Periop [address] [place] [address] Social History Tobacco Use Types Packs/Day Years [...] on filedocumented in this encounter Care Teams Magnetic Grinder Operator Relationship Specialty Start Date End Date Pcp, Not Required [address] [place] [address] PCP - General 03/26/17 documented as of this encounter Additional Source Comments The information contained in this document represents components of the legal health record. It is not the complete legal health record.[facility]
--- OUTSIDE RECORDS SUMMARY | 2025-06-21 19:48 | XMS_ITS | Clinical Summary ---
Author Organization [facility] Address [address] [place] [address] Phone Care Team Providers Care Color Sprayer Name Role Phone Pcp, Not Required Primary Care Provider Unavaila ble Allergies No known active allergies Medications gabapentin (NEURONTIN) 300 MG capsule Take 300 mg by mouth 5 (five) times a day. 6 01/22/2017 Active sertraline (ZOLOFT) 50 MG tablet Take 150 mg by mouth daily. 3 03/07/2017 Active metoprolol succinate (TOPROL-XL) 25 MG 24 hr tablet Take 25 mg by mouth daily. 3 01/18/2017 Active Active Problems Problem Noted Date Diagnosed Date Cervical spondylosis with radiculopathy 05/01/20 17 Family History Medical History Relation Comments Cancer Father Heart disease Mother Relation Status Comments Father Mother Social History Tobacco Use Types Packs/Day Years Used Date Smoking Tobacco: Former Cigarettes 0.5 40 0 04/15/1977 - 04/15/2017 Smokeless Tobacco: Never Alcohol Use Standard Drinks/Week Comments Yes 0 (1 standard drink = 0.6 oz pur e alcohol) one drink a week Education Answer Date Recorded Are you interested in more education? Not on matthew e 12/26/2022 Are you concerned about learning? Not on file 12/26/2022 No 12/26/2022 No 12/26/2022 Digital Access Answer Date Recorded No 01/27/2023 No 01/27/2023 No 01/27/2023 Reliable internet access at home? Not on file 01/27/2023 Device with a working camera? Not on file Comments Unknown Sex and Gender Information Value Date Recorded Sex Assigned at Not on file Legal Sex Female 7:28 PM EST Gender Identity Not on file Sexual Orientation Not on file Last Filed Vital Signs Vital Sign Reading Time Taken Comments Blood Pressure 156/70 09/03/2017 2:07 PM EST Pulse 63 09/03/2017 2:07 PM EST Temperature 36.4 C (97.5 F) 09/03/2017 2:07 PM EST Respiratory Rate 14 09/03/2017 2:07 PM EST Oxygen Saturation 98% 09/03/2017 2:08 PM EST Inhaled Oxygen Concentration - - Weight 74.3 kg (163 lb 14.4 oz) 017 11:25 AM EDT Height 162.6 cm (5' 4 ) 09/03/2017 2:07 PM EST Body Mass Index 28.13 05/27/2017 11:25 AM EDT Plan of Treatment Health Maintenance Due Date Last Done Comments Adult Td,Tdap Booster 1954 LIPID PANEL 1954 DEPRESSION SCREENING 1966 SMOKING Hx and SMOKELESS TOBACCO SCREENING 1967 HEPATITIS C SCREENING 1972 MAMMOGRAM 1994 COLOGUARD 1999 COLONOSCOPY 1999 COLORECTAL CANCER SCREENING 1999 FIT TEST 1999 FOBT 1999 SIGMOIDOSCOPY 1999 VIRTUAL COLONOSCOPY 1999 ZOSTER VACCINES (1 of 2) 2004 PNEUMOCOCCAL VACCINES (50+ years) (2 of 2 - PCV) 04/17/2018 04/17/2017 OSTEOPOROSIS SCREENING INITI AL (ONE-TIME) 2019 INFLUENZA VACCINE (#1) 2025 , 07/02/2019, 09/19/2017 COVID-19 VACCINE (2 - 2024-2 6 season) 2025 07/03/2021 RSV VACCINE (1 - 1-dose 75+ series) 2029 HEPATITIS A VACCINES Aged Out No long er eligible based on patient's age to complete this topic HIB VACCINES Aged Out No longer eligi ble based on patient's age to complete this topic MENINGOCOCCAL VACCINES (ACWY) Aged Out No longer eligible based on patient's age to complete this topic MENINGOCOCCAL VACCINES (B) Aged Out N o longer eligible based on patient's age to complete this topic Medical Devices Implanted Type Area Master Of Ceremonies Device Identifier Shelf Expiration Date Model / Serial / Lot Graft Bone Bioactive Foam Pack 1.2cc - [id number] Implanted:Qty: 1 on 05/01/2017 by Jona Mosher MD at [facility] STANDARD IVELISSE SPINE 09/28/2018 [id number] / [id number] / [id number] Cage Spacer Spacer Bengal Lg 7deg 6mm Implant - [id number] Implanted:Qty: 1 on 05/01/2017 by Jona Mosher MD at [facility] DEPUY SPINE [id number] / / Cage Spacer Spacer Bengal Lg 7deg 5mm Implant - [id number] Implanted:Qty: 1 on 05/01/2017 by Jona Mosher MD at [facility] DEP SPINE [id number] / / Insurance Codementor TOTAL CHOICE INDEMNITY Modify TOTAL CHOICE INDEMNITY Modify TOTAL CHOICE INDEMNITY Codementor TOTAL CHOICE INDEMNITY Modify TOTAL CHOICE INDEMNITY Modify TOTAL CHOICE INDEMNITY Modify TOTAL CHOICE INDEMNITY Modify TOTAL CHOICE INDEMNITY [facility] TOTAL CHOICE INDEMNITY Advance Directives For more information, please contact: [phone] (9AM - 5PM Molly/[facility], Friday-Friday) * Full Code (Presumed) (Latest Code Status on File) Date Activated Date Inactivated Comments 05/01/2017 7:22 PM 05/02/2017 2:40 PM Care Teams Color Sprayer Relationship Specialty Start Date End Date Pcp, Not Required [address] [place] [address] PCP - General 03/26/17 Additional Source Comments The information contained in this document represents components of the legal health record. It is not the complete legal health record.[facility]
--- OUTSIDE RECORDS SUMMARY | 2025-06-21 19:48 | XMS_ITS | Clinical Summary ---
Author Organization [facility] Address [address] [id number] Care Team Providers Care Organ Fixer Name Role Phone Jesús Dexter MD Primary Care Provider [phone] Immunizations Name Administration Dates Next Due Covid-19 [...] of 1 - PCV) 2019 COVID-19 Vaccine (3 2024-2 6 season) 2025 11/02/2020, 10/12/2020 Influenza Vaccine (#1) 2025 RSV Adult > 60+ Yrs or (1 - 1-dose 75+ series) 2029 Hepatitis B Vaccines Aged Out No long er eligible based on patient's age to complete this topic RSV Ped < 20 months Aged Out No longe r eligible based on patient's age to complete this topic Care Teams Organ Fixer Relationship Specialty Start Date End Date Jesús Dexter MD [address] [place] [address] PCP - General Enterprise Software Engineer 11/02/20
--- OUTSIDE RECORDS SUMMARY | 2025-06-21 19:48 | XMS_ITS | Encounter Summary ---
Author Organization [facility] Address [address] [place] [address] Phone Care Team Providers Care Heat Treating Operator Name Role Phone Pcp, Not Required Primary Care Provider Unavaila ble Encounter Details Date Type Department Care Team (Late st Contact Info) Description 05/01/2017 Procedure Pass [facility] [address] [place] [address] Social History Tobacco Use Types Packs/Day Years [...] on filedocumented in this encounter Care Teams Heat Treating Operator Relationship Specialty Start Date End Date Pcp, Not Required [address] [place] [address] PCP - General 03/26/17 documented as of this encounter Additional Source Comments The information contained in this document represents components of the legal health record. It is not the complete legal health record.[facility]
--- OUTSIDE RECORDS SUMMARY | 2025-06-21 19:48 | XMS_ITS | Clinical Summary ---
Author Organization [facility] Address [address] [place] [address] Phone Care Team Providers Care Slip Cover Operator Name Role Phone Jesús Dexter MD Primary Care Provider [phone] Encounters Date Type Department Care Team Description 03/30/2025 6:59 AM EDT - 03/30/2025 11:59 PM EDT Hospital Encounter [facility] CT Scan [address] [place] [address] Encounter for screening for malignant neoplasm of respiratory organs; Personal history of nicotine dependence Discharge Disposition: Home or Self Care from Last 3 Months Social History Tobacco [...] Last Done Comments Breast Cancer Screening 1955 Colorectal Cancer Screening: Colonoscopy 1954 DTaP,Tdap,and Td Vaccines (1 - Tdap) 1973 Zoster Vaccines (1 of 2) 2004 Pneumococcal Vaccine: 50+ Years (2 of 2 - PCV) 04/17/2018 04/17/2017 Falls Risk Assessment 08/05/2022 Hepatitis C Screening 08/05/2022 Medicare Annual Wellness Visit 08/05/2022 Osteoporosis Screening (Bone Density Screening) 08/05/2022 Social Influencers of Health Screening 08/05/2022 Depression Screening 09/01/2024 COVID-19 Vaccine ( season) 2025 05/26/2024, 06/17/2023, 09/13/2022, Additional history exists Influenza [...] Dose Chest CT [place] 12 [place] ([id number]) -------- FINAL REPORT -------- Dictated By: Opal Arnold Dictated Date: 04/01/2025 18:11 ET Assigned Physician: Opal Arnold Reviewed and Electronically Signed By: Opal Arnold Signed Date: 04/01/2025 18:18 ET Workstation ID: [id number] Transcribed By: Self Edit Transcribed Date: 04/01/2025 18:11 ET Narrative 04/01/2025 6:18 PM EDT History: 69 year-old 41 pack-year former smoker, asymptomatic, for lung cancer screening. Quit smoking 9 years ago. Comparison: 03/19/24 Technique: Helical volumetric imaging of the thorax was performed, using low- dose technique, without IV contrast. DLP: 116.81 mGy/cm CTDIvol: 3.22 mGy Marketfishpeed VCT Iterative reconstruction technique Findings: Lungs and [...] contrast. DLP: 116.81 mGy/cm CTDIvol: 3.22 mGy GE Whatserpeed VCT Iterative reconstruction technique Findings: Lungs and [...] Dose Chest CT [place] 12 [place] ([id number]) -------- FINAL REPORT -------- Dictated By: Opal Arnold Dictated Date: 04/01/2025 18:11 ET Assigned Physician: Opal Arnold Reviewed and Electronically Signed By: Opal Arnold Signed Date: 04/01/2025 18:18 ET Workstation ID: [id number] Transcribed By: Self Edit Transcribed Date: 04/01/2025 18:11 ET Jonas Rizzo MD IMG CT PROCEDURES Final Result from Last 3 Months Insurance MEDICARE [facility] Care Teams Slip Cover Operator Relationship Specialty Start Date End Date Jesús Dexter MD [address] [place] [address] Dr Homar [place] PCP - General Lapper 11/02/20
--- OUTSIDE RECORDS SUMMARY | 2025-06-21 19:48 | XMS_ITS | Encounter Summary ---
Author Organization [facility] Address [address] [place] [address] Phone Care Team Providers Care Materials Director Name Role Phone Pcp, Not Required Primary Care Provider Unavaila ble Encounter Details Date Type Department Care Team (Late st Contact Info) Description 04/15/2017 Procedure Pass [facility] [address] [place] [address] Social History Tobacco Use Types Packs/Day Years Used Date Smoking Tobacco: Every Day Smokeless Tobacco: Never Comments Unknown Sex and Gender Information Value Date Recorded Sex Assigned at Not on file Legal Sex Female 7:28 PM EST Gender Identity Not on file Sexual Orientation Not on file documented as of this encounter Plan of Treatment Not on file documented as of this encounter Visit Diagnoses Not on filedocumented in this encounter Care Teams Materials Director Relationship Specialty Start Date End Date Pcp, Not Required [address] [place] [address] PCP - General 03/26/17 documented as of this encounter Additional Source Comments The information contained in this document represents components of the legal health record. It is not the complete legal health record.[facility]
--- OUTSIDE RECORDS SUMMARY | 2025-06-21 19:48 | XMS_ITS | Patient Health Record ---
Author Organization [facility] Address [address] [place] [address] Care Team Providers Care Strategy Lead Name Role Phone Guerita (RETIRED) Jesús DENNIS Primary Care Provide r Unavailable Kyrie Rice Unavailable [phone] Reason For Referral No Information Medications Medication SIG (Take, Route, Frequency, Duration) Notes Start Date End Date Status Suprep Bowel Prep 1 kit as directed Oral ly as directed; Duration: 1 dose 05/02/2015 Activ e ProAir HFA 108 (90 Base) MCG/ACT 2 puffs as needed Inhalation every 4 hrs Active Omeprazole 20 MG 1 capsule Orally Onc e a day; Duration: 90 days 05/02/2015 Active Zoloft Active Toprol XL Active Neurontin Active Problems Problem Type SNOMED Code ICD Code Onset Dates Problem Status W/U Status Risk Notes Problem Atrophic gastritis (53242136) Atrophic gastritis without mention of hemorrhage (535.10) Active confirmed Problem Esophageal reflux (820425678) Esophageal reflux (530.81) Active confirmed Problem Irritable bowel syndrome (79170435) Irritable bowel syndrome (564.1) Active confirmed Problem Screening for malignant neoplasm of colon (138735841) Special screening for malignant neoplasms, colon (V76.51) Active confirmed Plan Of Treatment Future Test Test Name Order Date COLONOSCOPY 05/02/2015 Insurance Providers Payer Name Payer Address Payer Phone Subscriber Number Group Number Insured Name Patient Relationship to Insured Coverage Start Date Coverage End Date [facility] [address] [place] [address] [id number] DELVIS MARTINEZ Self - patient is the insured Medical (General) History Medical History History ICD Code GERD-EGD in 01/2011--HH, no B arrett's, no sig esophagitis--normal duodenal bx, neg. H.pylori Denies MD,DM,CVA,renal disease history of migraines flexible sigmoidoscopy 01-19-1998 COPD Screening colonoscopy in 03/02 005--negative except for diverticulosis and internal hemorrhoids HTN Nerve pain from the carpal tunnel surg elisha and sciatica-on Neurontin Anxiety Neg. abdominal U/S in 01/2011 IBS Surgical History Surgery Date(Month/Year) carpal tunnel release-both hands tubal ligation
== END 2025-06-21 15:25 | disposition home or self-care (01) ==
LOC: HO.HMCHD 14:44
PROVIDERS: PCP Physician Assistant; Visit Provider Physician Assistant
DX: I10 Essential (primary) hypertension (principal); F41.9 Anxiety disorder, unspecified; M54.30 Sciatica, unspecified side; R20.2 Paresthesia of skin; F17.210 Nicotine dependence, cigarettes, uncomplicated

== ENCOUNTER → 2025-06-21 14:44 | Outpatient (BNVA) | payer MEDICARE, OTHER, SELFPAY | PROVIDERS: PCP Physician Assistant; Visit Provider Physician Assistant | DX: I10 Essential (primary) hypertension (principal); F41.9 Anxiety disorder, unspecified; M54.31 Sciatica, right side; R20.2 Paresthesia of skin; F17.210 Nicotine dependence, cigarettes, uncomplicated; Z79.899 Other long term (current) drug therapy; Z71.6 Tobacco abuse counseling | CPT/HCPCS: 99212 ==

== ENCOUNTER 2025-06-23 11:46 | Outpatient (REF) | payer MEDICARE, OTHER, SELFPAY ==
[2025-06-23 13:07] LABS: Anion Gap 10 (12-20); Blood Urea Nitrogen 11 mg/dL (9-16); Calcium 9.0 mg/dL (8.4-10.2); Carbon Dioxide 27 mmol/L (22-29); Chloride 110 mmol/L (96-108); Cholesterol 161 mg/dL (<200); Estimated Glomerular Filt Rate > 60; HDL Cholesterol 55 mg/dL (>40); Potassium 4.1 mmol/L (3.3-5.1); Sodium 143 mmol/L (135-145); Triglycerides 83 mg/dL (<150)
--- OUTSIDE RECORDS SUMMARY | 2025-06-23 15:01 | XMS_ITS | Encounter Summary ---
Author Organization [facility] Address [address] [place] [address] Phone Care Team Providers Care Abstract Clerk Name Role Phone Pcp, Not Required Primary Care Provider Unavaila ble Encounter Details Date Type Department Care Team (Late st Contact Info) Description 04/15/2017 Procedure Pass [facility] [address] [place] [address] Social History Tobacco Use Types Packs/Day Years [...] on filedocumented in this encounter Care Teams Abstract Clerk Relationship Specialty Start Date End Date Pcp, Not Required [address] [place] [address] PCP - General 03/26/17 documented as of this encounter Additional Source Comments The information contained in this document represents components of the legal health record. It is not the complete legal health record.[facility]
--- OUTSIDE RECORDS SUMMARY | 2025-06-23 15:01 | XMS_ITS | Encounter Summary ---
Author Organization [facility] Address [address] [place] [address] Phone Care Team Providers Care Flatwork Ironer Name Role Phone Pcp, Not Required Primary Care Provider Unavaila ble Encounter Details Date Type Department Care Team (Late st Contact Info) Description 05/01/[address] [facility] Periop [address] [place] [address] Social History Tobacco Use Types Packs/Day Years [...] on filedocumented in this encounter Care Teams Flatwork Ironer Relationship Specialty Start Date End Date Pcp, Not Required [address] [place] [address] PCP - General 03/26/17 documented as of this encounter Additional Source Comments The information contained in this document represents components of the legal health record. It is not the complete legal health record.[facility]
--- OUTSIDE RECORDS SUMMARY | 2025-06-23 15:02 | XMS_ITS | Encounter Summary ---
Author Organization [facility] Address [address] [place] [phone] Phone Care Team Providers Care [id number] Tank Driver Name Role Phone Pcp, Not Required Primary Care Provider Unavaila ble Encounter Details Date Type Department Care Team (Late st Contact Info) Description 05/01/2017 Procedure Pass [facility] [address] [place] [address] Social History Tobacco Use Types Packs/Day Years [...] on filedocumented in this encounter Care Teams [id number] Tank Driver Relationship Specialty Start Date End Date Pcp, Not Required [address] [place] [address] PCP - General 03/26/17 documented as of this encounter Additional Source Comments The information contained in this document represents components of the legal health record. It is not the complete legal health record.[facility]
--- OUTSIDE RECORDS SUMMARY | 2025-06-23 15:02 | XMS_ITS | Patient Health Record ---
Author Organization [facility] Address [address] [place] [address] Care Team Providers Care Insurance Adjustor Name Role Phone Guerita (RETIRED) Jesús DENNIS Primary Care Provide r Unavailable Kyrie Rice Unavailable [phone] Reason For Referral No Information Medications Medication [...] W/U Status Risk Notes Problem Atrophic gastritis (62730345) Atrophic gastritis without mention of hemorrhage (535.10) Active confirmed Problem Esophageal reflux (271584389) Esophageal reflux (530.81) Active confirmed Problem Irritable bowel syndrome (76938430) Irritable bowel syndrome (564.1) Active confirmed Problem Screening for malignant neoplasm of colon (467482632) Special screening for malignant neoplasms, colon (V76.51) Active confirmed Plan Of Treatment Future Test Test Name Order Date COLONOSCOPY 05/02/2015 Insurance Providers Payer Name Payer Address Payer Phone Subscriber Number Group Number Insured Name Patient Relationship to Insured Coverage Start Date Coverage End Date [facility] [address] [place] [address] [id number] DELVIS MARTINEZ Self - patient is the insured Medical (General) History Medical History History ICD Code GERD-EGD in 01/2011--HH, no B arrett's, no sig esophagitis--normal duodenal bx, neg. H.pylori Denies [place],DM,CVA,renal disease history of migraines flexible sigmoidoscopy 01-19-1998 COPD Screening colonoscopy in 03/02 005--negative except for diverticulosis and internal hemorrhoids HTN Nerve pain from the carpal tunnel surg elisha and sciatica-on Neurontin Anxiety Neg. abdominal U/S in 01/2011 IBS Surgical History Surgery Date(Month/Year) carpal tunnel release-both hands tubal ligation
--- OUTSIDE RECORDS SUMMARY | 2025-06-23 15:02 | XMS_ITS | Clinical Summary ---
Author Organization [facility] Address [address] [place] [address] Phone Care Team Providers Care Registered Dietitian Name Role Phone Jesús Dexter MD Primary Care Provider [phone] Encounters Date Type Department Care Team Description 03/30/2025 6:59 AM EDT - 03/30/2025 11:59 PM EDT Hospital Encounter [facility] CT Scan [address] [place] [address] Encounter for screening for malignant [...] Chest CT in 12 months. [place] ([id number]) -------- FINAL REPORT -------- Dictated By: Opal Arnold Dictated Date: 04/01/2025 18:11 ET Assigned Physician: Opal Arnold Reviewed and Electronically Signed By: Opal Arnold Signed Date: 04/01/2025 18:18 ET Workstation ID: [id number] Transcribed By: Self Edit Transcribed Date: 04/01/2025 18:11 ET Narrative 04/01/2025 6:18 PM EDT History: 69 year-old 41 pack-year former smoker, asymptomatic, for lung cancer screening. Quit smoking 9 years ago. Comparison: 03/19/24 Technique: Helical volumetric imaging of the thorax was performed, using low- dose technique, without IV contrast. DLP: 116.81 mGy/cm CTDIvol: 3.22 mGy AVM Biotechnologypeed VCT Iterative reconstruction technique Findings: Lungs and [...] DLP: 116.81 mGy/cm CTDIvol: 3.22 mGy GE Profylepeed VCT Iterative reconstruction technique Findings: Lungs and [...] Dose Chest CT in 12 months. [place] ([id number]) -------- FINAL REPORT -------- Dictated By: Opal Arnold Dictated Date: 04/01/2025 18:11 ET Assigned Physician: Opal Arnold Reviewed and Electronically Signed By: Opal Arnold Signed Date: 04/01/2025 18:18 ET Workstation ID: [id number] Transcribed By: Self Edit Transcribed Date: 04/01/2025 18:11 ET Jonas Rizzo MD IMG CT PROCEDURES Final Result from Last 3 Months Insurance MEDICARE [facility] Care Teams Registered Dietitian Relationship Specialty Start Date End Date Jesús Dexter MD [address] [place] [address] Dr Homar [place] PCP - General Creel Clerk 11/02/20
--- OUTSIDE RECORDS SUMMARY | 2025-06-23 15:02 | XMS_ITS | Clinical Summary ---
Author Organization [facility] Address [address] [id number] Care Team Providers Care Software Engineer Developer Name Role Phone Jesús Dexter MD Primary Care Provider [phone] Immunizations Name Administration Dates Next Due Covid-19 [...] age to complete this topic Care Teams Software Engineer Developer Relationship Specialty Start Date End Date Jesús Dexter MD [address] [place] [address] PCP - General Icer Machine 11/02/20
--- OUTSIDE RECORDS SUMMARY | 2025-06-23 15:02 | XMS_ITS | Clinical Summary ---
Author Organization [facility] Address [address] [facility] [address] [place] [address] Phone Care Team Providers Care Director Of Religious Activities Name Role Phone Pcp, Not Required Primary [...] this topic Medical Devices Implanted Type Area Coating Technician Device Identifier Shelf Expiration Date Model / Serial / Lot Graft Bone Bioactive Foam Pack 1.2cc - [id number] Implanted:Qty: 1 on 05/01/2017 by Jona Mosher MD at [facility] STANDARD [employer] 09/28/2018 [id number] / [id number] / [id number] Cage Spacer Spacer Bengal Lg 7deg 6mm Implant - [id number] Implanted:Qty: 1 on 05/01/2017 by Jona Mosher MD at [facility] [employer] [id number] / / Cage Spacer Spacer Bengal Lg 7deg 5mm Implant - [id number] Implanted:Qty: 1 on 05/01/2017 by Jona Mosher MD at [facility] DEP SPINE [id number] / / Insurance [employer] TOTAL CHOICE INDEMNITY ip.access TOTAL CHOICE INDEMNITY ip.access TOTAL CHOICE INDEMNITY [employer] TOTAL CHOICE INDEMNITY ip.access TOTAL CHOICE INDEMNITY ip.access TOTAL CHOICE INDEMNITY ip.access TOTAL CHOICE INDEMNITY ip.access TOTAL CHOICE INDEMNITY [facility] TOTAL CHOICE INDEMNITY Advance Directives For more information, please contact: [phone] (9AM - 5PM [facility], Friday-Friday) * Full Code (Presumed) (Latest Code Status on File) Date Activated Date Inactivated Comments 05/01/2017 7:22 PM 05/02/2017 2:40 PM Care Teams Director Of Religious Activities Relationship Specialty Start Date End Date Pcp, Not Required [address] [place] [id number] PCP - General 03/26/17 Additional Source Comments The information contained in this document represents components of the legal health record. It is not the complete legal health record.[facility]
== END 2025-06-23 11:47 | disposition home or self-care (01) ==
LOC: HO.LAB 11:46
PROVIDERS: PCP Physician Assistant; Visit Provider Physician Assistant
DX: I10 Essential (primary) hypertension (principal); M54.30 Sciatica, unspecified side; F41.9 Anxiety disorder, unspecified; Z13.21 Encounter for screening for nutritional disorder
CPT/HCPCS: 36415; 80048; 80061; 82306